=== PATIENT | female | born 1985 | race Two or more races ===

== ENCOUNTER 2023-12-27 22:45 | Emergency (ER) | payer MEDICAID, OTHER ==
[~2023-12-27] VITALS: Ht 165.1 cm; Wt 154.0 kg
[2023-12-27 23:36] LABS: Urine Bacteria FEW /hpf (None Seen); Urine Blood 2+ /uL (Negative); Urine Clarity Clear (Clear); Urine Color Yellow (Yellow); Urine Mucus FEW (None Seen); Urine Protein, UAD 2+ (Negative); Urine Urobilinogen Normal (Negative); Urine WBC 20 /hpf (0 - 5); Urine pH 5.5 (5.0-8.0)
[2023-12-27 23:40] LABS: Basophils # (auto) 0.2 10 ^3/uL (0-0.2); Basophils % (auto) 1.5 % (0.0-2.0); Eosinophils # (auto) 0.3 10 ^3/uL (0-0.8); Eosinophils % (auto) 2.2 % (0.0-7.0); Hematocrit 39.3 % (36.0-46.0); Hemoglobin 12.3 g/dL (12.2-16.2); Lymphocytes # (auto) 6.2 10 ^3/uL (0.4-5.4); Lymphocytes % (auto) 40.6 % (10.0-50.0); Mean Corpuscular Hemoglobin 25.6 pg (28.0-32.0); Mean Corpuscular Hgb Conc. 31.3 g/dL (32.0-36.0); Mean Corpuscular Volume 81.7 fL (80.0-100.0); Monocytes # (auto) 0.7 10 ^3/uL (0-1.3); Monocytes % (auto) 4.8 % (0.0-12.0); Neutrophils # (auto) 7.8 10 ^3/uL (1.6-8.6); Neutrophils % (auto) 50.9 % (37.0-80.0); Nucleated Red Blood Cells % 0.1 %; Red Blood Cells 4.81 10^6/uL (4.0-5.20); White Blood Cell 15.3 10^3/uL (4.4-10.8)
[2023-12-27 23:54] LABS: Alanine Aminotransferase 34 U/L (7-40); Alkaline Phosphatase 120 U/L (46-116); Anion Gap 7 (5-15); Aspartate Aminotransferase 27 U/L (13-40); BUN/Creatinine Ratio 12.8 (10.0-20.0); Blood Urea Nitrogen 12 mg/dL (9-23); Calcium 10.6 mg/dL (8.7-10.4); Carbon Dioxide 29 mmol/L (20-30); Chloride 103 mmol/L (98-107); Glucose 181 mg/dL (74-106); Potassium 4.1 mmol/L (3.5-5.1); Sodium 139 mmol/L (136-145)
[2023-12-27 23:55] LABS: Albumin 4.7 g/dL (3.2-4.8); Bilirubin, Total 0.4 mg/dL (0.2-1.0); Total Protein 7.6 g/dL (5.7-8.2)
[2023-12-28] MEDS ORDERED: PHEN-1045 PO (01:23)
[2023-12-28] MEDS ORDERED: ALBU108A5 IN (01:23)
[2023-12-28] MEDS ORDERED: CEPH500C PO (01:23)
[2023-12-28] MEDS ORDERED: BENZ200C64 PO (01:23)
[2023-12-28 01:54] VITALS: BP 139/87; TEMP 98.1
[2023-12-28 01:55] VITALS: PULSE 77; RESP 16; O2SAT 98
[2023-12-28] MEDS: ONDANSETRON ODT 4 MG TAB PO ONE (01:59)
[2023-12-28] MEDS: HYDROcodone-ACET 5/325MG TAB PO ONE (01:59)
[2023-12-28] MEDS: cefTRIAXone SOD 1,000 MG VL IM ONE (02:00)
== END 2023-12-28 02:31 | disposition home or self-care (01) ==
LOC: ER 22:45
DX: R07.89 Other chest pain (principal); N39.0 Urinary tract infection, site not specified; E11.65 Type 2 diabetes mellitus with hyperglycemia; J20.9 Acute bronchitis, unspecified; I10 Essential (primary) hypertension; E78.5 Hyperlipidemia, unspecified; J45.909 Unspecified asthma, uncomplicated; Z32.02 Encounter for pregnancy test, result negative
CPT/HCPCS: 36415; 71045; 80053; 81001; 81025; 83880; 84443; 84484; 85025; 93005; 96372; 99285; J0696; Q0162

== ENCOUNTER 2024-03-30 16:07 | Inpatient (IN) | payer MEDICAID ==
[~2024-03-30] VITALS: Ht 165.1 cm; Wt 166.5 kg
[~2024-03-30 16:07] MED LIST: ALBU108A5 IN; BENZ200C64 PO; CEPH500C PO; PHEN-1045 PO
[2024-03-30 17:12] LABS: Basophils # (auto) 0.2 10 ^3/uL (0-0.2); Eosinophils # (auto) 0.4 10 ^3/uL (0-0.8); Hemoglobin 13.2 g/dL (12.2-16.2); Monocytes # (auto) 0.7 10 ^3/uL (0-1.3)
[2024-03-30 17:14] LABS: Basophils % (auto) 1.4 % (0.0-2.0); Eosinophils % (auto) 2.3 % (0.0-7.0); Hematocrit 41.1 % (36.0-46.0); Lymphocytes # (auto) 5.9 10 ^3/uL (0.4-5.4); Lymphocytes % (auto) 34.3 % (10.0-50.0); Mean Corpuscular Hemoglobin 25.6 pg (28.0-32.0); Mean Corpuscular Hgb Conc. 32.1 g/dL (32.0-36.0); Mean Corpuscular Volume 79.8 fL (80.0-100.0); Monocytes % (auto) 4.2 % (0.0-12.0); Neutrophils % (auto) 57.8 % (37.0-80.0); Red Blood Cells 5.14 10^6/uL (4.0-5.20); Red Cell Distribution Width 16.4 % (11.8-14.3); White Blood Cell 17.3 10^3/uL (4.4-10.8)
[2024-03-30 17:14] LABS: Urine Bacteria FEW /hpf (None Seen); Urine Blood Negative /uL (Negative); Urine Budding Yeast OCCASIONAL /hpf (None Seen); Urine Clarity Turbid (Clear); Urine Color Yellow (Yellow); Urine Hyaline Cast FEW /lpf (0 - 2); Urine Mucus FEW (None Seen); Urine Protein, UAD 1+ (Negative); Urine Specific Gravity 1.033 (1.001-1.035); Urine Urobilinogen 2 mg/dL (Negative); Urine WBC 52 /hpf (0 - 5); Urine pH 5.5 (5.0-9.0)
[2024-03-30 17:34] LABS: Alanine Aminotransferase 15 U/L (7-40); Albumin 4.5 g/dL (3.2-4.8); Alkaline Phosphatase 110 U/L (46-116); Anion Gap 13 (5-15); Aspartate Aminotransferase 22 U/L (13-40); BUN/Creatinine Ratio 9.2 (10.0-20.0); Blood Urea Nitrogen 9 mg/dL (9-23); Calcium 10.5 mg/dL (8.7-10.4); Carbon Dioxide 21 mmol/L (20-30); Chloride 102 mmol/L (98-107); Glucose 207 mg/dL (74-106); Lipase 42 U/L (12-53); Sodium 136 mmol/L (136-145)
[2024-03-30 17:35] LABS: Bilirubin, Total 0.3 mg/dL (0.2-1.0)
[2024-03-30 17:39] LABS: Lactic Acid w/Reflex 4.6 mmol/L (0.4-2.0)
[2024-03-30] MEDS: PIPERACILLIN-TAZOB 3.375GM 100 ML IV ONE (18:54)
[2024-03-30] MEDS: SODIUM CHLORIDE 0.9% 1,000 ML IV ONE ×2 (18:54→22:55)
[2024-03-30] MEDS: FLUCONAZOLE 100 MG TAB PO ONE (22:33)
[2024-03-30] MEDS: PANTOPRAZOLE 40 MG/10 ML VIAL INJ IV ONE (22:34)
[2024-03-30 23:55] VITALS: PULSE 79; RESP 11; O2SAT 94
[2024-03-31] VITALS (7 sets, daily range): BP systolic 114–142; BP diastolic 57–80; PULSE 60–75; RESP 16–20; TEMP 97.6–98.7; O2SAT 94–96
[2024-03-31] MEDS: SODIUM CHLORIDE 0.9% 1,000 ML IV SCH
[2024-03-31] MEDS ORDERED: DEXTROSE (50%) 50ML SYRG IV PRN
[2024-03-31] MEDS ORDERED: ONDANSETRON HCL 4 MG/2 ML VIAL IV PRN
[2024-03-31] MEDS ORDERED: MORPHINE SULFATE INJ 2 MG/ml SYRG IV PRN
[2024-03-31] MEDS: ACCU-CHEK COMFORT CURVE STRIP VI SCH (02:21)
[2024-03-31] MEDS: InsuLIN REG 1unit/0.01ml Soln (100units/ml) SC SCH (02:23)
[2024-03-31] MEDS: HYDROcodone-ACET 5/325MG TAB PO PRN (06:36)
[2024-03-31 07:53] LABS: Alanine Aminotransferase 12 U/L (7-40); Albumin 4.1 g/dL (3.2-4.8); Alkaline Phosphatase 102 U/L (46-116); Anion Gap 10 (5-15); Aspartate Aminotransferase 18 U/L (13-40); BUN/Creatinine Ratio 7.1 (10.0-20.0); Bilirubin, Total 0.5 mg/dL (0.2-1.0); Blood Urea Nitrogen 7 mg/dL (9-23); Calcium 9.7 mg/dL (8.5-10.1); Carbon Dioxide 25 mmol/L (20-30); Chloride 101 mmol/L (98-107); Glucose 157 mg/dL (74-106); Sodium 136 mmol/L (136-145); Total Protein 7.1 g/dL (5.7-8.2)
[2024-03-31 07:55] LABS: Hemoglobin 11.8 g/dL (12.2-16.2)
[2024-03-31 08:00] LABS: Hematocrit 37.5 % (36.0-46.0); Mean Corpuscular Hemoglobin 25.4 pg (28.0-32.0); Mean Corpuscular Hgb Conc. 31.4 g/dL (32.0-36.0); Red Blood Cells 4.63 10^6/uL (4.0-5.20); Red Cell Distribution Width 16.9 % (11.8-14.3); White Blood Cell 13.1 10^3/uL (4.4-10.8)
[2024-03-31 08:07] LABS: Band Neutrophils % (manual) 0; Basophils % (manual) 0 (0.0-2.0); Blast Cells 0; Metamyelocytes % 0; Promyelocytes % 0; Reactive Lymphocytes 0
[2024-03-31] MEDS: levoFLOXacin 500MG 100 ML IV SCH (09:34)
[2024-03-31 12:31] LABS: Eosinophils % (manual) 1 (0-7); Lymphocytes % (manual) 35 (10.0-50.0); Monocytes % (manual) 7 (0-12); Myelocytes % 1
[2024-03-31 12:32] LABS: Platelet Estimate Adequate
[2024-04-01] VITALS (8 sets, daily range): BP systolic 122–157; BP diastolic 60–104; PULSE 63–76; RESP 16–20; TEMP 97.6–98.7; O2SAT 93–98
[2024-04-01] MEDS ORDERED: LEVO300T2 PO (07:13)
[2024-04-01 07:20] LABS: Alanine Aminotransferase 12 U/L (7-40); Albumin 4.3 g/dL (3.2-4.8); Alkaline Phosphatase 95 U/L (46-116); Anion Gap 8 (5-15); Aspartate Aminotransferase 10 U/L (13-40); BUN/Creatinine Ratio 7.4 (10.0-20.0); Blood Urea Nitrogen 7 mg/dL (9-23); Calcium 9.5 mg/dL (8.5-10.1); Carbon Dioxide 27 mmol/L (20-30); Chloride 101 mmol/L (98-107); Glucose 177 mg/dL (74-106); Potassium 3.9 mmol/L (3.5-5.1); Sodium 136 mmol/L (136-145)
[2024-04-01 07:21] LABS: Bilirubin, Total 0.3 mg/dL (0.2-1.0); Total Protein 7.1 g/dL (5.7-8.2)
[2024-04-01 07:25] LABS: Basophils # (auto) 0.1 10 ^3/uL (0-0.2); Basophils % (auto) 0.9 % (0.0-2.0); Eosinophils # (auto) 0.4 10 ^3/uL (0-0.8); Eosinophils % (auto) 3.1 % (0.0-7.0); Hemoglobin 11.8 g/dL (12.2-16.2); Lymphocytes # (auto) 4.1 10 ^3/uL (0.4-5.4); Lymphocytes % (auto) 35.9 % (10.0-50.0); Mean Corpuscular Hemoglobin 26.3 pg (28.0-32.0); Mean Corpuscular Hgb Conc. 32.7 g/dL (32.0-36.0); Mean Corpuscular Volume 80.6 fL (80.0-100.0); Monocytes # (auto) 0.6 10 ^3/uL (0-1.3); Monocytes % (auto) 4.8 % (0.0-12.0); Neutrophils # (auto) 6.4 10 ^3/uL (1.6-8.6); Neutrophils % (auto) 55.3 % (37.0-80.0); Nucleated Red Blood Cells % 0.1 %; Red Blood Cells 4.46 10^6/uL (4.0-5.20); White Blood Cell 11.6 10^3/uL (4.4-10.8)
[2024-04-01] MEDS: IBUPROFEN 600 MG TAB PO PRN (21:27)
[2024-04-02] VITALS (8 sets, daily range): BP systolic 117–157; BP diastolic 54–95; PULSE 65–87; RESP 17–19; TEMP 97.6–98.4; O2SAT 92–98
[2024-04-02] MEDS ORDERED: LISI10TA34 PO (12:03)
[2024-04-02] MEDS: SODIUM CHLORIDE 0.9% 1,000 ML IV SCH (15:00)
[2024-04-02] MEDS ORDERED: ACETAMINOPHEN 500 MG TAB PO PRN (15:00)
[2024-04-02] MEDS ORDERED: ATOR-47 PO (16:25)
[2024-04-02] MEDS ORDERED: FURO20TA3 PO (16:25)
[2024-04-02] MEDS ORDERED: CEPH500T PO (16:25)
[2024-04-02] MEDS ORDERED: FURO10SO PO (16:25)
[2024-04-02] MEDS ORDERED: BUSP5TAB51 PO (16:25)
[2024-04-02] MEDS: PANTOPRAZOLE 40 MG TAB PO ONE (17:23)
[2024-04-02] MEDS: cefTRIAXone 1GM/50ML D5W 50 ML IV ONE (17:59)
[2024-04-03] VITALS (7 sets, daily range): BP systolic 114–164; BP diastolic 70–90; PULSE 61–80; RESP 16–20; TEMP 97.7–98.7; O2SAT 90–98
[2024-04-03] MEDS ORDERED: hydrALAZINE HCL 20 MG/ML VL IV PRN (00:45)
[2024-04-03] MEDS: IBUPROFEN 600 MG TAB PO PRN (01:25)
[2024-04-03 05:59] LABS: Basophils # (auto) 0.1 10 ^3/uL (0-0.2); Basophils % (auto) 0.8 % (0.0-2.0); Eosinophils # (auto) 0.4 10 ^3/uL (0-0.8); Hemoglobin 12.7 g/dL (12.2-16.2); Monocytes # (auto) 0.5 10 ^3/uL (0-1.3); Nucleated Red Blood Cells % 0.1 %
[2024-04-03 06:03] LABS: Eosinophils % (auto) 3.5 % (0.0-7.0); Hematocrit 39.2 % (36.0-46.0); Lymphocytes # (auto) 4.2 10 ^3/uL (0.4-5.4); Lymphocytes % (auto) 34.2 % (10.0-50.0); Mean Corpuscular Hemoglobin 26.4 pg (28.0-32.0); Mean Corpuscular Hgb Conc. 32.4 g/dL (32.0-36.0); Mean Corpuscular Volume 81.6 fL (80.0-100.0); Monocytes % (auto) 4.3 % (0.0-12.0); Neutrophils % (auto) 57.2 % (37.0-80.0); Red Cell Distribution Width 17.5 % (11.8-14.3); White Blood Cell 12.3 10^3/uL (4.4-10.8)
[2024-04-03 06:17] LABS: Albumin 4.3 g/dL (3.2-4.8); Alkaline Phosphatase 91 U/L (46-116); Anion Gap 11 (5-15); Aspartate Aminotransferase < 8 U/L (13-40); BUN/Creatinine Ratio 8.7 (10.0-20.0); Blood Urea Nitrogen 8 mg/dL (9-23); Calcium 9.8 mg/dL (8.7-10.4); Carbon Dioxide 25 mmol/L (20-30); Chloride 103 mmol/L (98-107); Glucose 207 mg/dL (74-106); Potassium 4.1 mmol/L (3.5-5.1); Sodium 139 mmol/L (136-145)
[2024-04-03 06:18] LABS: Alanine Aminotransferase < 9 U/L (7-40); Bilirubin, Total 0.3 mg/dL (0.2-1.0); Total Protein 7.5 g/dL (5.7-8.2)
[2024-04-03] MEDS: PANTOPRAZOLE 40 MG TAB PO SCH (06:47)
[2024-04-03] MEDS: LORazepam 0.5 MG TAB PO PRN (08:16)
[2024-04-03] MEDS: cefTRIAXone 1GM/50ML D5W 50 ML IV SCH (08:16)
[2024-04-03] MEDS: HYDROcodone-ACET 5/325MG TAB PO PRN (08:17)
[2024-04-03] MEDS: ENOXAPARIN SOD 40 MG/0.4 ML SYRINGE SC SCH (08:20)
[2024-04-03] MEDS ORDERED: PERCOT PO (11:12)
[2024-04-03 17:01] LABS: INR 0.97 (0.9-1.15); Partial Thromboplastin Time 25.7 SEC (24.5-34.5); Prothrombin Time 10.3 sec (9.3-11.8)
[2024-04-04] MEDS: InsuLIN REG 1unit/0.01ml Soln (100units/ml) SC SCH (00:27)
[2024-04-04] MEDS: SUCCINYLCHOLINE CHLORIDE 20 MG/ML 10ML VIAL IV ONE (08:04)
[2024-04-04] MEDS ORDERED: fentaNYL CITRATE 100 MCG/2 ML VL ONE (08:06)
[2024-04-04] MEDS: BUPIVACAINE HCL 50 ML ONE (08:07)
[2024-04-04] MEDS: ceFAZolin 2 GM/D5W50ml 50 ML IV ONE (08:17)
[2024-04-04 08:41] VITALS: BP 137/102; PULSE 65; RESP 18; TEMP 97.8; O2SAT 100
[2024-04-04] MEDS ORDERED: ROCURONIUM 10MG/ML 10ML VIAL IV ONE (08:43)
[2024-04-04] MEDS ORDERED: PROPOFOL 10 MG/ML 20 ML IV ONE (08:43)
[2024-04-04] MEDS ORDERED: DexAMETHasone SOD PHOS 10MG/1ML VIAL INJ ONE (08:44)
[2024-04-04] MEDS ORDERED: ONDANSETRON HCL 4 MG/2 ML VIAL ONE (08:44)
[2024-04-04] MEDS ORDERED: ePHEDrine SULFATE 50 MG/ML AMP ONE (08:45)
[2024-04-04] MEDS ORDERED: MEPERIDINE HCL (50 MG/ML) 1 ML VIAL ONE (09:05)
[2024-04-04] MEDS: LIDOCAINE W/ EPINEPHRINE 1% 20ML VIAL ONE (09:11)
[2024-04-04] MEDS ORDERED: SUGAMMADEX 200mg/2ml Vial (100MG/ML) IV ONE (09:28)
[2024-04-04 09:38] VITALS: O2SAT 96
[2024-04-04] MEDS ORDERED: HYDROmorphone HCL 2 MG/ML VL/or syr IV PRN (10:00)
[2024-04-04] MEDS ORDERED: MEPERIDINE HCL (25 MG/ML) 1ML VIAL IV PRN (10:00)
[2024-04-04 12:41] VITALS: BP 127/79; PULSE 60; RESP 18; TEMP 97.8; O2SAT 91
[2024-04-04] MEDS: metroNIDAZOLE 500MG/100ML 100 ML IV SCH (14:00)
[2024-04-04] MEDS: ONDANSETRON HCL 4 MG/2 ML VIAL IV ONE (15:08)
[2024-04-04] MEDS: metroNIDAZOLE 500 MG TAB PO ONE (15:46)
[2024-04-04 17:00] VITALS: BP 124/72; PULSE 89; RESP 18; TEMP 98; O2SAT 91
[2024-04-04] MEDS: metroNIDAZOLE 500 MG TAB PO SCH (20:48)
[2024-04-04 21:00] VITALS: BP 122/74; PULSE 94; RESP 18; TEMP 98.5; O2SAT 93
[2024-04-05] VITALS (7 sets, daily range): BP systolic 123–136; BP diastolic 55–78; PULSE 60–73; RESP 18–21; TEMP 97.7–97.9; O2SAT 92–97
[2024-04-05 06:59] LABS: Basophils % (auto) 0.3 % (0.0-2.0); Eosinophils # (auto) 0 10 ^3/uL (0-0.8); Neutrophils # (auto) 12.1 10 ^3/uL (1.6-8.6)
[2024-04-05 07:04] LABS: Basophils # (auto) 0.1 10 ^3/uL (0-0.2); Hematocrit 37.3 % (36.0-46.0); Lymphocytes # (auto) 3.9 10 ^3/uL (0.4-5.4); Lymphocytes % (auto) 23.2 % (10.0-50.0); Mean Corpuscular Hemoglobin 25.9 pg (28.0-32.0); Mean Corpuscular Hgb Conc. 32.2 g/dL (32.0-36.0); Mean Corpuscular Volume 80.5 fL (80.0-100.0); Monocytes # (auto) 0.6 10 ^3/uL (0-1.3); Monocytes % (auto) 3.6 % (0.0-12.0); Neutrophils % (auto) 72.9 % (37.0-80.0); Nucleated Red Blood Cells % 0.1 %; Red Blood Cells 4.63 10^6/uL (4.0-5.20); Red Cell Distribution Width 17.1 % (11.8-14.3); White Blood Cell 16.6 10^3/uL (4.4-10.8)
[2024-04-05] MEDS ORDERED: AMOX500T86 PO (12:10)
== END 2024-04-05 17:14 | disposition home or self-care (01) | DRG 263 ==
LOC: ER 16:11 → OVERFLOW 23:56 → WEST WING 03-31 01:50
PROVIDERS: ADMIT Internal Medicine; ATTEND Nurse Practitioner Acute Care
PROC: 0FT44ZZ Resection of Gallbladder, Percutaneous Endoscopic Approach (ICD-10-PCS; principal; 2024-04-04 08:33)
DX: K80.70 Calculus of gallbladder and bile duct without cholecystitis without obstruction (principal); N17.0 Acute kidney failure with tubular necrosis; Z68.44 Body mass index [BMI] 60.0-69.9, adult; E11.65 Type 2 diabetes mellitus with hyperglycemia; D64.9 Anemia, unspecified; E03.9 Hypothyroidism, unspecified; K76.0 Fatty (change of) liver, not elsewhere classified; E78.5 Hyperlipidemia, unspecified; E66.01 Morbid (severe) obesity due to excess calories; N39.0 Urinary tract infection, site not specified; I10 Essential (primary) hypertension; J45.909 Unspecified asthma, uncomplicated; K21.9 Gastro-esophageal reflux disease without esophagitis; G89.4 Chronic pain syndrome; F11.90 Opioid use, unspecified, uncomplicated; Z98.891 History of uterine scar from previous surgery; Z79.899 Other long term (current) drug therapy; Z91.041 Radiographic dye allergy status; Z82.5 Family history of asthma and other chronic lower respiratory diseases
CPT/HCPCS: 36415; 74176; 76705; 76937; 78226; 80053; 81001; 81025; 82247; 82962; 83036; 83605; 83690; 84702; 85007; 85025; 85027; 85610; 85730; 87040; 87086; 96365; C9113; G0378; J0330; J1100; J1815; J1956; J2405; J2543; J2704; J3490

== ENCOUNTER 2025-01-21 21:42 | Emergency (ER) | payer MEDICAID ==
[~2025-01-21] VITALS: Ht 165.1 cm; Wt 159.0 kg
[~2025-01-21 21:42] MED LIST changes: +AMOX500T86 PO; +ATOR-47 PO; +BUSP5TAB51 PO; +CEPH500T PO; +FURO20TA3 PO; +LEVO300T2 PO; +LISI10TA34 PO; +PERCOT PO
[2025-01-21] MEDS: KETOROLAC TROMETH 60MG/2ML VIAL IM ONE (22:00)
--- NOTE | 2025-01-21 22:11 | ED.PDOC ---
History of Present Illness HPI Comments 39 year old female came to ER due to back pains. Patient is morbidly obese. Has been complaining of lower back pains for the past 2 days associated with nausea and vomiting. She denies any urinary symptoms. Chief Complaint: Back Pains Time Seen by MD: 22:11 Primary Care Provider: GAGAN Reviewed Notes: Nurses Notes Allergies: Coded Allergies: Acetaminophen (Verified Allergy, Severe, 01/21/25) Uncoded Allergies: CONTRAST (Allergy, Unknown, 04/04/24) BURNING/ITCHY Home Meds Active Scripts Amoxicillin & Pot Clavulanate (Augmentin) 500 Mg Tab, 1 TAB PO BID for 5 Days, #10 TAB Prov:SYDNIE POLANCOPH CLOTH DYEING RANGE TENDER 04/05/24 Benzonatate (Benzonatate) 200 Mg Cap, 1 CAP PO TID, #30 CAP As needed for cough Prov:DAE PLASENCIAA Q CLOTH DYEING RANGE TENDER 12/28/23 Albuterol Sulfate (Albuterol Sulfate Hfa) 108 Mcg/Act Aer, 1 PUFF IN Q4HPRN PRN, #1 INH As needed for cough nasal congestion shortness of breath or wheeze Prov:DAE PLASENCIAA Q CLOTH DYEING RANGE TENDER 12/28/23 Phenazopyridine HCl (Phenazopyridine Hydrochol) 200 Mg Tab, 1 TAB PO TID for 3 Days, #9 TAB Prov:DAE PLASENCIAA Q CLOTH DYEING RANGE TENDER 12/28/23 Cephalexin Monohydrate (Cephalexin) 500 Mg Cap, 1 CAP PO QID for 10 Days, #40 CAP Prov:ERINNDAEA Q CLOTH DYEING RANGE TENDER 12/28/23 Reported Medications Oxycodone W/ Acetaminophen (Percocet 5/325MG) 1 Tab Tb, 1 TAB PO BID, #60 TAB 04/03/24 Furosemide (Furosemide) 20 Mg Tab, 1 TAB PO DAILY, #90 TAB 1 Refill 04/02/24 Cephalexin Monohydrate (Cephalexin) 500 Mg Tab, 1 TAB PO QID, #40 TAB 04/02/24 Atorvastatin Calcium (ATORVASTATIN CALCIUM) 80 Mg Tab, 80 MG PO DAILY, TAB 04/02/24 Buspirone Hcl (Buspirone Hcl) 5 Mg Tab, 5 MG PO Q12HR for 30 Days, MG 04/02/24 Lisinopril (Lisinopril) 10 Mg Tab, 10 MG PO DAILY for 30 Days, MG 04/02/24 Levothyroxine Sodium (Synthroid) 300 Mcg Tab, 325 MCG PO QAM, TAB 04/01/24 Mode of Arrival: Wheelchair Severity: Moderate Timing: Days Duration: Since onset Past Medical History PAST MEDICAL HISTORY: Asthma, DM, Gallstones, HTN, Thyroid Past Medical History (Other): morbid obesity Surgical History: PRINCIPAL IOS DEVELOPER History: No Pertinent PRINCIPAL IOS DEVELOPER History Family History Family History: Reviewed,noncontributory to illness Social History Smoker: Non-Smoker Alcohol: Denies ETOH Use Drugs: Denies Drug Use Lives In: Home Constitutional: denies: chills, diaphoresis, fatigue, fever, malaise, sweats, weakness, others EENTM: denies: blurred vision, double vision, ear bleeding, ear discharge, ear drainage, ear pain, ear ringing, eye pain, eye redness, hearing loss, mouth pain, mouth swelling, nasal discharge, nose bleeding, nose congestion, nose pain , photophobia, tearing, throat pain, throat swelling, voice changes, others Respiratory: denies: cough, hemoptysis, orthopnea, SOB at rest, shortness of breath, SOB with excertion, stridor, wheezing, others Cardiovascular: denies: chest pain, dizzy spells, diaphoresis, Dyspnea on exertion, edema, irregular heart beat, left arm pain, lightheadedness, palpitations, PND, syncope, others Gastrointestinal: denies: abdomen distended, abdominal pain, blood streaked bowels, constipated, diarrhea, dysphagia, difficulty swallowing, hematemesis, melena, nausea, poor appetite, poor fluid intake, rectal bleeding, rectal pain, vomiting, others Genitourinary: denies: abnormal vagina bleeding, burning, dyspareunia, dysuria, flank pain, frequency, hematuria, incontinence, pain, , vagina discharge, urgency, others Neurological: denies: dizziness, fainting, headache, left sided numbness, left sided weakness, numbness, paresthesia, pre-existing deficit, right sided numbness, right sided weakness, seizure, speech problems, tingling, tremors, weakness, others Musculoskeletal: reports: back pain; denies: gout, joint pain, joint swelling, muscle pain, muscle stiffness, neck pain, others Integumetry: denies: bruises, change in color, change in hair/nails, dryness, laceration, lesions, lumps, rash, wounds, others Allergic/Immunocompromised: denies: Difficulty Healing, Frequent Infections, Hives, Itching, others Hematologic/Lymphatic: denies: anemia, blood clots, easy bleeding, easy bruising, swollen glands, others Endocrine: denies: excessive hunger, excessive sweating, excessive thirst, excessive urination, flushing, intolerance to cold, intolerance to heat, unexplained weight gain, unexplained weight loss, others Psychiatric: denies: anxiety, bipolar disorder, depression, hopeless, panic disorder, schizophrenia, sleepless, suicidal, others Physical Exam General Appearance: No Apparent Distress, Obese HEENT: Normal ENT Inspection, Pharynx Normal, TMs Normal Neck: Full Range of Motion, Non-Tender, Normal, Normal Inspection Respiratory: Chest Non-Tender, Lungs Clear, No Accessory Muscle Use, No Respiratory Distress, Normal Breath Sounds Cardiovascular: No Edema, No JVD, No Murmur, No Gallop, Normal Peripheral Pulses, Regular Rate/Rhythm Breast Exam: Deferred Gastrointestinal: No Organomegaly, Non Tender, No Pulsatile Mass, Normal Bowel Sounds, Soft Genitalia: Deferred Pelvic: Deferred Rectal: Deferred Extremities: No calf tenderness, Normal capillary refill, Normal inspection, Normal range of motion, No pedal edema, Tender (paralumbar tenderness) Musculoskeletal : Apperance: Normal Neurologic: Alert, circulation analyst II-XII nml as Tested, No Motor Deficits, Normal Affect, Normal Mood, No Sensory Deficits Cerebellar Function: Normal Reflexes: Normal Skin: Dry, Normal Color, Warm Lymphatic: No Adenopathy Was a procedure done? Was a procedure done?: No Differential Dx Considerations may include: musculoskeletal pain, lumbosacral strain, UTI, morbid obesity, pyelonephritis, renal colic, related pain X-Ray, Labs, Meds, VS Vital Signs Date Time Temp Pulse Resp B/P (MAP) Pulse Ox O2 Delivery O2 Flow Rate FiO2 01/21/25 22:09 99.3 95 20 150/90 (110) 95 99.3 Lab Test 01/21/25 22:10 01/21/25 22:00 Range/Units White Blood Count 11.3 H 4.4-10.8 10^3/uL Red Blood Count 5.09 4.0-5.20 10^6/uL Hemoglobin 14.7 12.2-16.2 g/dL Hematocrit 45.2 36.0-46.0 % Mean Corpuscular Volume 88.7 80.0-100.0 fL Mean Corpuscular Hemoglobin 28.8 28.0-32.0 pg Mean Corpuscular Hemoglobin Concent 32.5 32.0-36.0 g/dL Red Cell Distribution Width 14.9 H 11.8-14.3 % Platelet Count 294 140-450 10^3/uL Mean Platelet Volume 8.9 6.9-10.8 fL Neutrophils (%) (Auto) 60.1 37.0-80.0 % Lymphocytes (%) (Auto) 31.7 10.0-50.0 % Monocytes (%) (Auto) 5.3 0.0-12.0 % Eosinophils (%) (Auto) 2.3 0.0-7.0 % Basophils (%) (Auto) 0.6 0.0-2.0 % Neutrophils # (Auto) 6.8 1.6-8.6 10 ^3/uL Lymphocytes # (Auto) 3.6 0.4-5.4 10 ^3/uL Monocytes # (Auto) 0.6 0-1.3 10 ^3/uL Eosinophils # (Auto) 0.3 0-0.8 10 ^3/uL Basophils # (Auto) 0.1 0-0.2 10 ^3/uL Nucleated Red Blood Cells 0.2 % Sodium Level 136 136-145 mmol/L Potassium Level 3.9 3.5-5.1 mmol/L Chloride Level 102 98-107 mmol/L Carbon Dioxide Level 26 20-31 mmol/L Anion Gap 8 5-15 Blood Urea Nitrogen 6 L 9-23 mg/dL Creatinine 0.92 0.550-1.02 mg/dL Glomerular Filtration Rate Calc 81 >90 mL/min BUN/Creatinine Ratio 6.5 L 10.0-20.0 Serum Glucose 354 H 74-106 mg/dL Calcium Level 9.6 8.7-10.4 mg/dL Urine Color Light-yellow Yellow Urine Clarity Clear Clear Urine pH 5.5 5.0-9.0 Urine Specific [place] 1.029 1.001-1.035 Urine Protein 1+ H Negative Urine Ketones Trace Negative Urine Blood Negative Negative /uL Urine Nitrite Negative Negative Urine Bilirubin Negative Negative Urine Urobilinogen Normal Negative mg/dL Urine Leukocyte Esterase Trace Negative /uL Urine RBC 2 0 - 4 /hpf Urine Microscopic WBC 4 0-5 /HPF Urine Squamous Epithelial Cells Few <5 /hpf Urine Bacteria None seen None Seen /hpf Urine Mucus Few None Seen Urine Glucose 4+ H Normal mg/dL Urine Test Negative Negative Time of 1ST Reevaluation: 22:04 Reevaluation 1ST: Unchanged Patient Education/Counseling: Diagnosis, Treatment Family Education/Counseling: Diagnosis, Treatment Additional Information -Reviewed patient's previous visit(s): March 31-2023 admitted for Cholelithiasis with Biliary colic, UTI, chronic pain syndrome with chronic opiate use - The following tests were ordered, and results were reviewed by me: - Additional information was gathered from interviewing the following independent Historian: - I reviewed and agreed with the following test results read by other provider: - I discussed treatments and results with medical personnel and: patient Comprehensive systems review obtained and negative except for what is stated in the HPI. Departure 1 Departure Time of Disposition: 22:55 Impression: Primary Impression: Lumbalgia Qualified Codes: M54.50 - Low back pain, unspecified; G89.29 - Other chronic pain Disposition: HOME / SELF CARE / HOMELESS Condition: Good e-Prescriptions Cyclobenzaprine Hcl (Cyclobenzaprine Hcl) 10 Mg Tab 10 MG PO Q8HPRN PRN for 3 Days, #9 TAB Prov: ALESSIA LILLY MD 01/21/25 Ibuprofen Micronized (MOTRIN TABLET) 600 Mg Tb 600 MG PO TID PRN, #40 TAB *Black box warning-NSAIDS can increase risk of IN & hypertension, GI irritation, ulceration, bleed, perferation. Do not use post cardiac surgery. Use short duration/lowest effective dose. Prov: ALESSIA LILLY MD 01/21/25 Discharged With: Relative Critical Care Note Critical Care Time?: No Stability Stability form required: No Heart Score Heart Score: Heart Score Response (Comments) Value History N/A 0 EKG N/A 0 Age N/A 0 Risk Factors N/A 0 Troponin N/A 0 Total 0 I personally scribed for ALESSIA LILLY MD ([email or web address]) on 01/21/25 at 22:11. Electronically submitted by Tito Castillo ([email or web address]). ALESSIA LILLY MD Jan 21, 2025 22:11
[2025-01-21 22:21] LABS: Urine Bacteria None Seen /hpf (None Seen)
[2025-01-21 22:33] LABS: Basophils # (auto) 0.1 10 ^3/uL (0-0.2); Basophils % (auto) 0.6 % (0.0-2.0); Eosinophils # (auto) 0.3 10 ^3/uL (0-0.8); Eosinophils % (auto) 2.3 % (0.0-7.0); Hematocrit 45.2 % (36.0-46.0); Hemoglobin 14.7 g/dL (12.2-16.2); Lymphocytes # (auto) 3.6 10 ^3/uL (0.4-5.4); Lymphocytes % (auto) 31.7 % (10.0-50.0); Mean Corpuscular Hemoglobin 28.8 pg (28.0-32.0); Mean Corpuscular Hgb Conc. 32.5 g/dL (32.0-36.0); Mean Corpuscular Volume 88.7 fL (80.0-100.0); Monocytes # (auto) 0.6 10 ^3/uL (0-1.3); Monocytes % (auto) 5.3 % (0.0-12.0); Neutrophils # (auto) 6.8 10 ^3/uL (1.6-8.6); Neutrophils % (auto) 60.1 % (37.0-80.0); Nucleated Red Blood Cells % 0.2 %; Platelet Count (auto) 294 10^3/uL (140-450); Red Blood Cells 5.09 10^6/uL (4.0-5.20); Red Cell Distribution Width 14.9 % (11.8-14.3); White Blood Cell 11.3 10^3/uL (4.4-10.8)
[2025-01-21 22:35] LABS: Chloride 102 mmol/L (98-107); Potassium 3.9 mmol/L (3.5-5.1); Sodium 136 mmol/L (136-145)
[2025-01-21 22:36] LABS: Anion Gap 8 (5-15); Carbon Dioxide 26 mmol/L (20-31)
[2025-01-21 22:37] LABS: Calcium 9.6 mg/dL (8.7-10.4)
[2025-01-21 22:37] LABS: Urine Blood Negative /uL (Negative); Urine Clarity Clear (Clear); Urine Color Light-Yellow (Yellow); Urine Mucus FEW (None Seen); Urine Protein, UAD 1+ (Negative); Urine Specific Gravity 1.029 (1.001-1.035); Urine Squamous Epithelial Cell FEW /hpf (<5); Urine Urobilinogen Normal (Negative); Urine WBC 4 /HPF (0-5); Urine pH 5.5 (5.0-9.0)
[2025-01-21 22:41] LABS: BUN/Creatinine Ratio 6.5 (10.0-20.0)
[2025-01-21 22:45] LABS: Blood Urea Nitrogen 6 mg/dL (9-23); Glucose 354 mg/dL (74-106)
[2025-01-21] MEDS ORDERED: IBU600T PO (22:56)
[2025-01-21] MEDS ORDERED: CYCL-839 PO (22:56)
[2025-01-21 23:23] VITALS: BP 150/90; PULSE 84; RESP 16; TEMP 99.4; O2SAT 95
== END 2025-01-21 23:26 | disposition home or self-care (01) ==
LOC: ER 21:42
DX: M54.50 Low back pain, unspecified (principal); J45.909 Unspecified asthma, uncomplicated; E11.9 Type 2 diabetes mellitus without complications; I10 Essential (primary) hypertension; E66.01 Morbid (severe) obesity due to excess calories; Z79.899 Other long term (current) drug therapy; Z88.1 Allergy status to other antibiotic agents; Z68.43 Body mass index [BMI] 50.0-59.9, adult; Z32.02 Encounter for pregnancy test, result negative
CPT/HCPCS: 36415; 80048; 81001; 81025; 85025; J1885

== ENCOUNTER 2025-01-30 11:53 | Emergency (ER) | payer MEDICAID ==
[~2025-01-30] VITALS: Ht 165.1 cm; Wt 155.0 kg
[~2025-01-30 11:53] MED LIST changes: +CYCL-839 PO; +IBU600T PO
[2025-01-30 13:19] VITALS: BP 123/63; PULSE 82; RESP 16; TEMP 97.6; O2SAT 94
--- NOTE | 2025-01-30 14:17 | DVH ---
EXAM: XY R KNEE 3V XRAY HISTORY: KNEE PAIN. R/O FRACTURE COMPARISON: None TECHNIQUE: 3 views of the right knee were performed. FINDINGS: No acute fracture is identified about the right knee. There are medial compartment marginal osteophy gustavo with [id number] joint space narrowing. No evidence of significant joint effusion. IMPRESSION: 1. No acute fracture of the right knee. 2. Degenerative changes of the right knee, greatest in the medial compartment.
--- NOTE | 2025-01-30 14:30 | ED.PDOC ---
Musculoskeletal HPI Comments 39 YEAR OLD PRESENTS WITH A CHIEF COMPLAINT NONRADIATING ATRAUMATIC RIGHT ANTERIOR KNEE PAIN X1 DAY. HEARD A POP WHILE SHE WAS IN BED & COMPLAINS OF PAIN SINCE ABLE TO BEAR WEIGHT ON THE LEG DENIES TRAUMA TO THE KNEE OR RECENT FALL DENIES SKIN COLOR CHANGES AROUND THE KNEE DENIES MASSES AROUND THE KNEE DENIES POPPING/LOCKING/GIVING OUT OF THE KNEE DENIES FEVER CHILLS NIGHT SWEATS NAUSEA VOMITING DENIES PREVIOUS SURGERIES TO THE KNEE NOR SIGNIFICANT INJURY Chief Complaint: Lower Extremity Time Seen by MD: 12:19 Primary Care Provider: GAGAN Reviewed Notes: Nurses Notes, Medications, Allergies Allergies: Coded Allergies: Acetaminophen (Verified Allergy, Severe, 01/21/25) Uncoded Allergies: CONTRAST (Allergy, Unknown, 04/04/24) BURNING/ITCHY Home Meds Active Scripts Meloxicam (Meloxicam) 7.5 Mg Tab, 1 TAB PO DAILY for 30 Days, #30 TAB 1 Refill Prov:PRINCESS CHRISTINE TECHNICAL ASSISTANT 01/30/25 Cyclobenzaprine Hcl (Cyclobenzaprine Hcl) 10 Mg Tab, 10 MG PO Q8HPRN PRN for 3 Days, #9 TAB Prov:ALESSIA LILLY MD 01/21/25 Ibuprofen Micronized (MOTRIN TABLET) 600 Mg Tb, 600 MG PO TID PRN, #40 TAB *Black box warning-NSAIDS can increase risk of ND & hypertension, GI irritation, ulceration, bleed, perferation. Do not use post cardiac surgery. Use short duration/lowest effective dose. Prov:ALESSIA LILLY MD 01/21/25 Amoxicillin & Pot Clavulanate (Augmentin) 500 Mg Tab, 1 TAB PO BID for 5 Days, #10 TAB Prov:MAGDALENO POLANCO TECHNICAL ASSISTANT 04/05/24 Benzonatate (Benzonatate) 200 Mg Cap, 1 CAP PO TID, #30 CAP As needed for cough Prov:BOSTON PLASENCIA Q TECHNICAL ASSISTANT 12/28/23 Albuterol Sulfate (Albuterol Sulfate Hfa) 108 Mcg/Act Aer, 1 PUFF IN Q4HPRN PRN, #1 INH As needed for cough nasal congestion shortness of breath or wheeze Prov:BOSTON PLASENCIA Q TECHNICAL ASSISTANT 12/28/23 Phenazopyridine HCl (Phenazopyridine Hydrochol) 200 Mg Tab, 1 TAB PO TID for 3 Days, #9 TAB Prov:BOSTON PLASENCIA Q TECHNICAL ASSISTANT 12/28/23 Cephalexin Monohydrate (Cephalexin) 500 Mg Cap, 1 CAP PO QID for 10 Days, #40 CAP Prov:BOSTON PLASENCIA Q TECHNICAL ASSISTANT 12/28/23 Reported Medications Oxycodone W/ Acetaminophen (Percocet 5/325MG) 1 Tab Tb, 1 TAB PO BID, #60 TAB 04/03/24 Furosemide (Furosemide) 20 Mg Tab, 1 TAB PO DAILY, #90 TAB 1 Refill 04/02/24 Cephalexin Monohydrate (Cephalexin) 500 Mg Tab, 1 TAB PO QID, #40 TAB 04/02/24 Atorvastatin Calcium (ATORVASTATIN CALCIUM) 80 Mg Tab, 80 MG PO DAILY, TAB 04/02/24 Buspirone Hcl (Buspirone Hcl) 5 Mg Tab, 5 MG PO Q12HR for 30 Days, MG 04/02/24 Lisinopril (Lisinopril) 10 Mg Tab, 10 MG PO DAILY for 30 Days, MG 04/02/24 Levothyroxine Sodium (Synthroid) 300 Mcg Tab, 325 MCG PO QAM, TAB 04/01/24 Information Source: Patient Mode of Arrival: Wheelchair Past Medical History PAST MEDICAL HISTORY: Asthma, DM, Gallstones, HTN, Thyroid Surgical History: PUMP RUNNER History: No Pertinent PUMP RUNNER History Family History Family History: Reviewed,noncontributory to illness Social History Smoker: Non-Smoker Alcohol: Denies ETOH Use Drugs: Denies Drug Use Lives In: Home All Other Systems: Reviewed and Negative (PER HPI) Physical Exam General Appearance: No Apparent Distress, Normal HEENT: Normal ENT Inspection, Pharynx Normal, TMs Normal Neck: Full Range of Motion, Non-Tender, Normal, Normal Inspection Respiratory: Chest Non-Tender, Lungs Clear, No Accessory Muscle Use, No Respiratory Distress, Normal Breath Sounds Cardiovascular: No Murmur, No Gallop, Regular Rate/Rhythm Breast Exam: Deferred Gastrointestinal: No Organomegaly, Non Tender, No Pulsatile Mass, Normal Bowel Sounds, Soft Genitalia: Deferred Pelvic: Deferred Rectal: Deferred Extremities: No calf tenderness, Normal capillary refill, Normal inspection, Normal range of motion, Non-tender, No pedal edema Musculoskeletal : Location: Right Extremity Location: Knee (NO GROSS ABNORMALITY. PAIN WITH FLEXION- EXTENSION. DP 2+ AND DISTAL NEURO SENSATION INTACT) Apperance: Normal Neurologic: Alert, No Motor Deficits, Normal Affect, Normal Mood, No Sensory Deficits Cerebellar Function: Normal Reflexes: Normal Skin: Dry, Normal Color, Warm Lymphatic: No Adenopathy Was a procedure done? Was a procedure done?: No Differential Diagnosis EXT Differential Diagnosis: Fracture, Sprain, Dislocation X-Ray, Labs, Meds, VS Vital Signs Date Time Temp Pulse Resp B/P (MAP) Pulse Ox O2 Delivery O2 Flow Rate FiO2 01/30/25 13:19 97.6 82 16 123/63 (83) 94 97.6 01/30/25 13:19 82 16 94 Room Air 01/30/25 12:04 97.6 82 16 123/63 (83) 94 97.6 PATIENT: DARIAN TORRES AACCT: [id number] UNIT: [id number] : 1985 LOC: ER ROOM / BED: / AGE / SEX: 39 / F ADM STATUS: REG ER SERVICE 1330 ORDERING PHYSICIAN: PRINCESS CHRISTINE NP PROCEDURE(s): RKN3 - R KNEE 3V XRAY REASON: KNEE PAIN. R/O FRACTURE ORDER NUMBER(s): [id number], ACCESSION NUMBER(s): [id number] EXAM: XY R KNEE 3V XRAY HISTORY: KNEE PAIN. R/O FRACTURE COMPARISON: None TECHNIQUE: 3 views of the right knee were performed. FINDINGS: No acute fracture is identified about the right knee. There are medial compartment marginal osteophytes with [id number] joint space narrowing. No evidence of significant joint effusion. IMPRESSION: 1. No acute fracture of the right knee. 2. Degenerative changes of the right knee, greatest in the medial compartment. ATED BY: ANGELICA ROSE MD DICTATED DATE/TIME: 01/30/251413 SIGNED BY: ANGELICA ROSE MD SIGNED DATE/TIME: 01/30/251413 CC: X-Ray, Labs, Meds, VS Comment PRESCRIBED NSAIDS FOR THE MANAGEMENT OF ACUTE KNEE PAIN. TAKE IBUPROFEN P.O. 600 MG EVERY 8 HOURS WITH FOOD NEEDED FOR PAIN RECOMMEND LIGHT WALKING UNDER THE SUN FOR 30 MINUTES A DAY AVOIDING RUNNING JOGGING HIGH-IMPACT ACTIVITIES STRETCH TOLERATED ICE 3X/DAY FOR 5 MINUTES WEAR KNEE BRACE FOR STABILITY NEEDED, ELEVATE LEG SWELLING AGGRAVATED On reevaluation, patient had symptomatic improvement. Patient is stable for discharge at this time. External notes reviewed. Test results and diagnostic imaging interpreted. All diagnostic findings, discharge care, education and instructions provided Follow-up with PCP in 2 to 3 days Patient verbalized understanding and agreed to treatment plan Vital signs stable, afebrile, no acute distress noted Patient ambulatory with strong steady gait Advised to return precautions for any new or worsening symptoms, return to ER immediately for re-evaluation Patient is aware that the purpose of this visit was for an acute medical emergency requiring emergent stabilization. Chronic conditions, including malignancies have not been ruled out. Patient is instructed to follow up with PCP as directed and discharge instructions for continued care and workup. If unable to arrange follow-up, patient is to return to the emergency department for reassessment. Patient (parent or legal guardian if applicable) was given verbal and written discharge instructions and acknowledges understanding. Time of 1ST Reevaluation: 14:29 Reevaluation 1ST: Improved Patient Education/Counseling: Diagnosis, Treatment Family Education/Counseling: Diagnosis, Treatment Departure 1 Departure Time of Disposition: 14:35 Impression: Primary Impression: Arthritis of knee Disposition: 01 HOME / SELF CARE / HOMELESS Condition: Stable e-Prescriptions Meloxicam (Meloxicam) 7.5 Mg Tab 1 TAB PO DAILY for 30 Days, #30 TAB 1 Refill Prov: PRINCESS CHRISTINE NP 01/30/25 Critical Care Note Critical Care Time?: No Stability Stability form required: No Heart Score Heart Score: Heart Score Response (Comments) Value History N/A 0 EKG N/A 0 Age N/A 0 Risk Factors N/A 0 Troponin N/A 0 Total 0 PRINCESS CHRISTINE TECHNICAL ASSISTANT Jan 30, 2025 14:29
[2025-01-30] MEDS ORDERED: MELO7.5T7 PO (14:35)
== END 2025-01-30 14:40 | disposition home or self-care (01) ==
LOC: ER 11:53
DX: M17.11 Unilateral primary osteoarthritis, right knee (principal); I10 Essential (primary) hypertension; J45.909 Unspecified asthma, uncomplicated; E11.9 Type 2 diabetes mellitus without complications; Z79.1 Long term (current) use of non-steroidal anti-inflammatories (NSAID); Z79.899 Other long term (current) drug therapy; Z98.890 Other specified postprocedural states; Z88.6 Allergy status to analgesic agent
CPT/HCPCS: 73562

== ENCOUNTER 2025-04-08 21:59 | Inpatient (IN) | payer MEDICAID ==
[~2025-04-08] VITALS: Ht 165.1 cm; Wt 159.1 kg
[~2025-04-08 21:59] MED LIST changes: +MELO7.5T7 PO
--- NOTE | 2025-04-08 22:53 | ED.PDOC ---
History of present illness HPI Comments 39 y/o morbidly obese F presents with spouse for c/o hyperglycemia, with associated lightheadedness, dizziness, and nausea. Patient has a history of asthma, DM, cholelithiasis, HTN, and thyroid disease. She reports on her blood glucose levels fluctuating but being consistently elevated since last night amidst taking her insulin and diabetic medication as prescribed. She denies any polyuria, polydipsia, polyphagia, vomiting, or further associated symptoms. Chief Complaint: Hyperglycemia Time Seen by MD: 22:40 Primary Care Provider: GAGAN History of present illness: Nurses Notes, Medications, Allergies Allergies: Coded Allergies: Acetaminophen (Verified Allergy, Severe, 01/21/25) Uncoded Allergies: CONTRAST (Allergy, Unknown, 04/04/24) BURNING/ITCHY Home Meds Active Scripts Meloxicam (Meloxicam) 7.5 Mg Tab, 1 TAB PO DAILY for 30 Days, #30 TAB 1 Refill Prov:PRINCESS CHRISTINE GRAIN SACKER 01/30/25 Cyclobenzaprine Hcl (Cyclobenzaprine Hcl) 10 Mg Tab, 10 MG PO Q8HPRN PRN for 3 Days, #9 TAB Prov:ALESSIA LILLY MD 01/21/25 Ibuprofen Micronized (MOTRIN TABLET) 600 Mg Tb, 600 MG PO TID PRN, #40 TAB *Black box warning-NSAIDS can increase risk of SD & hypertension, GI irritation, ulceration, bleed, perferation. Do not use post cardiac surgery. Use short duration/lowest effective dose. Prov:ALESSIA LILLY MD 01/21/25 Amoxicillin & Pot Clavulanate (Augmentin) 500 Mg Tab, 1 TAB PO BID for 5 Days, #10 TAB Prov:MAGDALENO POLANCO GRAIN SACKER 04/05/24 Benzonatate (Benzonatate) 200 Mg Cap, 1 CAP PO TID, #30 CAP As needed for cough Prov:BOSTON PLASENCIA Q GRAIN SACKER 12/28/23 Albuterol Sulfate (Albuterol Sulfate Hfa) 108 Mcg/Act Aer, 1 PUFF IN Q4HPRN PRN, #1 INH As needed for cough nasal congestion shortness of breath or wheeze Prov:BOSTON PLASENCIA Q GRAIN SACKER 12/28/23 Phenazopyridine HCl (Phenazopyridine Hydrochol) 200 Mg Tab, 1 TAB PO TID for 3 Days, #9 TAB Prov:BOSTON PLASENCIA Q GRAIN SACKER 12/28/23 Cephalexin Monohydrate (Cephalexin) 500 Mg Cap, 1 CAP PO QID for 10 Days, #40 CAP Prov:BOSTON PALSENCIA Q GRAIN SACKER 12/28/23 Reported Medications Oxycodone W/ Acetaminophen (Percocet 5/325MG) 1 Tab Tb, 1 TAB PO BID, #60 TAB 04/03/24 Furosemide (Furosemide) 20 Mg Tab, 1 TAB PO DAILY, #90 TAB 1 Refill 04/02/24 Cephalexin Monohydrate (Cephalexin) 500 Mg Tab, 1 TAB PO QID, #40 TAB 04/02/24 Atorvastatin Calcium (ATORVASTATIN CALCIUM) 80 Mg Tab, 80 MG PO DAILY, TAB 04/02/24 Buspirone Hcl (Buspirone Hcl) 5 Mg Tab, 5 MG PO Q12HR for 30 Days, MG 04/02/24 Lisinopril (Lisinopril) 10 Mg Tab, 10 MG PO DAILY for 30 Days, MG 04/02/24 Levothyroxine Sodium (Synthroid) 300 Mcg Tab, 325 MCG PO QAM, TAB 04/01/24 Information Source: Patient Mode of Arrival: Ambulatory Timing: Hours Duration: Since onset Prehospital treatment: Other (see HPI) History of: Diabetes, Insulin use Past Medical History PAST MEDICAL HISTORY: Asthma, DM, Gallstones, HTN, Thyroid Past Medical History (Other): morbid obesity Surgical History: DIRECTOR OF CASEWORK DEPARTMENT History: No Pertinent DIRECTOR OF CASEWORK DEPARTMENT History Family History Family History: Reviewed,noncontributory to illness Social History Smoker: Non-Smoker Alcohol: Denies ETOH Use Drugs: Denies Drug Use Lives In: Home All Other Systems: Reviewed and Negative (as per HPI) Physical Exam General Appearance: Mild Distress, Obese HEENT: Normal ENT Inspection, Pharynx Normal, TMs Normal Neck: Full Range of Motion, Non-Tender, Normal, Normal Inspection Respiratory: Chest Non-Tender, Lungs Clear, No Accessory Muscle Use, No Respiratory Distress, Normal Breath Sounds Cardiovascular: No Edema, No JVD, No Murmur, No Gallop, Normal Peripheral Pulses, Regular Rate/Rhythm Breast Exam: Deferred Gastrointestinal: No Organomegaly, Non Tender, No Pulsatile Mass, Normal Bowel Sounds, Soft Genitalia: Deferred Pelvic: Deferred Rectal: Deferred Extremities: No calf tenderness, Normal capillary refill, Normal inspection, Normal range of motion, Non-tender, No pedal edema Musculoskeletal : Apperance: Normal Neurologic: Alert, customer services manager II-XII nml as Tested, No Motor Deficits, Normal Affect, Normal Mood, No Sensory Deficits Cerebellar Function: Normal Reflexes: Normal Skin: Dry, Normal Color, Warm Lymphatic: No Adenopathy Was a procedure done? Was a procedure done?: No Differential Diagnosis (DM) Differential Diagnosis: Dehydration, DKA, Electrolyte Abnormality, Hyperglycemia, UTI X-Ray, Labs, Meds, VS Vital Signs Date Time Temp Pulse Resp B/P (MAP) Pulse Ox O2 Delivery O2 Flow Rate FiO2 04/08/25 23:19 99 Room Air* 0 21 04/08/25 22:00 98.7 83 17 151/100 (117) 98 98.7 Lab Test 04/08/25 22:48 04/08/25 22:47 Range/Units Urine Opiates Screen Neg NEGATIVE Urine Fentanyl Screen Neg NEGATIVE Urine Barbiturates Screen Neg NEGATIVE Urine Phencyclidine Screen Neg NEGATIVE Urine Amphetamines Screen Neg NEGATIVE Urine Benzodiazepines Screen Neg NEGATIVE Urine Cocaine Screen Neg NEGATIVE Urine Cannabinoids Screen Neg NEGATIVE White Blood Count 12.8 H 4.4-10.8 10^3/uL Red Blood Count 5.12 4.0-5.20 10^6/uL Hemoglobin 14.5 12.2-16.2 g/dL Hematocrit 43.4 36.0-46.0 % Mean Corpuscular Volume 84.8 80.0-100.0 fL Mean Corpuscular Hemoglobin 28.3 28.0-32.0 pg Mean Corpuscular Hemoglobin Concent 33.3 32.0-36.0 g/dL Red Cell Distribution Width 15.6 H 11.8-14.3 % Platelet Count 321 140-450 10^3/uL Mean Platelet Volume 8.7 6.9-10.8 fL Neutrophils (%) (Auto) 54.1 37.0-80.0 % Lymphocytes (%) (Auto) 37.8 10.0-50.0 % Monocytes (%) (Auto) 5.0 0.0-12.0 % Eosinophils (%) (Auto) 2.4 0.0-7.0 % Basophils (%) (Auto) 0.7 0.0-2.0 % Neutrophils # (Auto) 6.9 1.6-8.6 10 ^3/uL Lymphocytes # (Auto) 4.8 0.4-5.4 10 ^3/uL Monocytes # (Auto) 0.6 0-1.3 10 ^3/uL Eosinophils # (Auto) 0.3 0-0.8 10 ^3/uL Basophils # (Auto) 0.1 0-0.2 10 ^3/uL Nucleated Red Blood Cells 0.1 % Urine Color Light-yellow Yellow Urine Clarity Clear Clear Urine pH 5.5 5.0-9.0 Urine Specific [place] 1.028 1.001-1.035 Urine Protein Trace H Negative Urine Ketones 1+ H Negative Urine Blood Negative Negative /uL Urine Nitrite Negative Negative Urine Bilirubin Negative Negative Urine Urobilinogen Normal Negative mg/dL Urine Leukocyte Esterase Trace Negative /uL Urine RBC 8 0 - 4 /hpf Urine Microscopic WBC 13 H 0-5 /HPF Urine Squamous Epithelial Cells Few <5 /hpf Urine Bacteria Few H None Seen /hpf Urine Mucus Few None Seen Urine Yeast (Budding) Occasional None Seen /hpf Urine Glucose 4+ H Normal mg/dL Urine Test Negative Negative Blood Gas Specimen Type Venous Blood Gas Sample Site Vbg - n/a Blood Gas Patient Temperature 37.0 Arterial Blood Date Drawn [id number] Cipriano Test N/a Venous Blood pH 7.416 7.320-7.430 Venous Blood pCO2 at Patient Temp 41.2 38.0-54.0 mmHg Venous Blood pO2 at Patient Temp < 36.5 23.0-48.0 mmHg Venous Blood HCO3 25.9 22.0-29.0 mmol/L Venous Blood Base Excess 1.2 -2.0-3.0 mmol/L Blood Gas Modality Room air FiO2 % 21.0 Sodium Level 137 136-145 mmol/L Potassium Level 4.3 3.5-5.1 mmol/L Chloride Level 100 98-107 mmol/L Carbon Dioxide Level 27 20-31 mmol/L Anion Gap 10 5-15 Blood Urea Nitrogen 9 9-23 mg/dL Creatinine 0.93 0.550-1.02 mg/dL Glomerular Filtration Rate Calc 80 >90 mL/min BUN/Creatinine Ratio 9.7 L 10.0-20.0 Serum Glucose 286 H 74-106 mg/dL Calcium Level 10.6 H 8.7-10.4 mg/dL Magnesium Level 1.8 1.6-2.6 mg/dL Current Medications Medications (Trade) Dose Ordered Sig/Davide Route Start Time Stop Time Status Last Admin Sodium Chloride 1,000 ml @ 1,000 mls/hr Q1H ONCE IV 04/08/25 22:45 04/08/25 23:44 04/08/25 23:18 Time of 1ST Reevaluation: 22:40 Reevaluation 1ST: Unchanged Patient Education/Counseling: Diagnosis, Treatment Family Education/Counseling: Diagnosis, Treatment Departure 1 Departure Time of Disposition: 23:41 Impression: Primary Impression: Uncontrolled diabetes mellitus Additional Impression: Dehydration Disposition: ADMITTED INPATIENT Condition: Guarded Discharged With: Self, Spouse Comments Lightheadedness and Malaise in Type 2 Diabetes Chief Complaint: Lightheadedness and malaise for 2 days History of Present Illness: Patient is a 39-year-old female with a history of type 2 diabetes mellitus on insulin therapy who presents to the ED with complaints of lightheadedness and malaise for the past two days. She reports feeling unsteady when attempting to ambulate at home and has been unable to adequately care for herself. Patient acknowledges poor oral fluid intake during this period. She reports her home blood glucose readings were in the 400s prior to arrival. Patient is currently experiencing significant malaise and persistent lightheadedness with difficulty tolerating oral fluids. Review of Systems: Constitutional: Positive for malaise and lightheadedness. Neurological: Positive for unsteadiness when ambulating. Endocrine: Positive for hyperglycemia. Gastrointestinal: Positive for difficulty tolerating oral fluids. All other systems reviewed and negative. Medications: Insulin (specific regimen not specified) Past Medical History: Type 2 Diabetes Mellitus, insulin-dependent Obesity Physical Exam: General: Patient is very obese and in mild distress. No other physical exam findings documented. Lab Results: Blood Glucose: 286 mg/dL (improved from reported home readings in the 400s) Calcium: 10.6 mg/dL (slightly elevated) WBC: 12.8 K/uL (mildly elevated) Hemoglobin: 14.5 g/dL (normal) Hematocrit: 43% (normal) Platelets: 321 K/uL (normal) Urinalysis: 1+ ketones Anion Gap: 10 (normal) Imaging and Other Relevant Results: No imaging studies documented Medical Decision Making: Summary Statement: 39-year-old female with poorly controlled type 2 diabetes presenting with lightheadedness, malaise, and dehydration with hyperglycemia and mild ketonuria. Problem List: 1. Uncontrolled type 2 diabetes mellitus with hyperglycemia, 2. Dehydration, 3. Lightheadedness and malaise, 4. Obesity Differential Diagnosis: Diabetic ketoacidosis (though anion gap is normal), Hyperglycemic hyperosmolar state, Volume depletion, Medication effect, Electrolyte abnormalities, Infection (mild leukocytosis noted) ED Course: Patient received IV fluid hydration in the ED. Despite interventions, patient continued to experience significant malaise and lightheadedness with difficulty tolerating oral fluids. Decision made to admit for further management of uncontrolled diabetes and dehydration. Assessment and Plan: 1. Uncontrolled Type 2 Diabetes Mellitus with Hyperglycemia - Blood glucose improved from reported 400s at home to 286 mg/dL in ED - Urinalysis positive for ketones (1+) - Continue insulin therapy with appropriate adjustments - Monitor blood glucose levels closely - Endocrinology consultation for diabetes management optimization 2. Dehydration - Continue IV fluid resuscitation - Monitor electrolytes and renal function - Encourage oral intake as tolerated 3. Severe Lightheadedness and Malaise - Likely secondary to hyperglycemia and dehydration - Monitor for improvement with treatment of primary conditions - Assess for orthostatic hypotension 4. Obesity - Nutritional consultation during admission - Discuss weight management strategies Disposition: Admit to medical floor for management of uncontrolled diabetes and dehydration with continued IV fluids and insulin therapy. Additional Notes: Patient admitted for uncontrolled diabetes and dehydration Billing Information: ICD-10: E11.65 - Type 2 diabetes mellitus with hyperglycemia ICD-10: E86.0 - Dehydration ICD-10: R42 - Dizziness and giddiness ICD-10: R53.83 - Other fatigue Critical Care Note Critical Care Time?: No Stability Stability form required: No Heart Score Heart Score: Heart Score Response (Comments) Value History N/A 0 EKG N/A 0 Age N/A 0 Risk Factors N/A 0 Troponin N/A 0 Total 0 I personally scribed for MARINA NYE MD ([email or web address]) on 04/08/25 at 22:53. Electronically submitted by Luther Scott ([email or web address]). MARINA NYE MD Apr 08, 2025 22:53
[2025-04-08 23:05] LABS: Basophils # (auto) 0.1 10 ^3/uL (0-0.2); Basophils % (auto) 0.7 % (0.0-2.0); Eosinophils # (auto) 0.3 10 ^3/uL (0-0.8); Eosinophils % (auto) 2.4 % (0.0-7.0); Hematocrit 43.4 % (36.0-46.0); Hemoglobin 14.5 g/dL (12.2-16.2); Lymphocytes # (auto) 4.8 10 ^3/uL (0.4-5.4); Lymphocytes % (auto) 37.8 % (10.0-50.0); Mean Corpuscular Hemoglobin 28.3 pg (28.0-32.0); Mean Corpuscular Hgb Conc. 33.3 g/dL (32.0-36.0); Mean Corpuscular Volume 84.8 fL (80.0-100.0); Monocytes # (auto) 0.6 10 ^3/uL (0-1.3); Neutrophils # (auto) 6.9 10 ^3/uL (1.6-8.6); Neutrophils % (auto) 54.1 % (37.0-80.0); Nucleated Red Blood Cells % 0.1 %; Platelet Count (auto) 321 10^3/uL (140-450); Red Blood Cells 5.12 10^6/uL (4.0-5.20); Red Cell Distribution Width 15.6 % (11.8-14.3); White Blood Cell 12.8 10^3/uL (4.4-10.8)
[2025-04-08 23:09] LABS: Urine Bacteria FEW /hpf (None Seen); Urine Blood Negative /uL (Negative); Urine Budding Yeast OCCASIONAL /hpf (None Seen); Urine Clarity Clear (Clear); Urine Color Light-Yellow (Yellow); Urine Mucus FEW (None Seen); Urine Protein, UAD TRACE (Negative); Urine Specific Gravity 1.028 (1.001-1.035); Urine Squamous Epithelial Cell FEW /hpf (<5); Urine Urobilinogen Normal (Negative); Urine WBC 13 /HPF (0-5); Urine pH 5.5 (5.0-9.0)
[2025-04-08 23:13] LABS: Anion Gap 10 (5-15); Carbon Dioxide 27 mmol/L (20-31); Chloride 100 mmol/L (98-107); Potassium 4.3 mmol/L (3.5-5.1); Sodium 137 mmol/L (136-145)
[2025-04-08 23:14] LABS: Calcium 10.6 mg/dL (8.7-10.4)
[2025-04-08] MEDS: SODIUM CHLORIDE 0.9% 1,000 ML IV ONE (23:18)
[2025-04-08 23:19] VITALS: O2SAT 99
[2025-04-08 23:19] LABS: BUN/Creatinine Ratio 9.7 (10.0-20.0); Blood Urea Nitrogen 9 mg/dL (9-23); Glucose 286 mg/dL (74-106); Magnesium 1.8 mg/dL (1.6-2.6)
[2025-04-08 23:19] LABS: Amphetamine Screen, Urine Neg (NEGATIVE); Barbiturate Scree,Urine Neg (NEGATIVE); Benzodiazephine Screen, Urine Neg (NEGATIVE); Cannabinoid Screen, Urine Neg (NEGATIVE); Cocaine Screen, Urine Neg (NEGATIVE); Opiate Scree,Urine Neg (NEGATIVE); Phencyclidine Screen, Urine Neg (NEGATIVE)
[2025-04-09] VITALS (11 sets, daily range): BP systolic 102–146; BP diastolic 57–90; PULSE 64–112; RESP 14–22; TEMP 97.3–98.6; O2SAT 93–98
[2025-04-09] MEDS: SODIUM CHLORIDE 0.9% 1,000 ML IV SCH (05:00)
[2025-04-09] MEDS ORDERED: DEXTROSE (50%) 50ML SYRG IV PRN (05:00)
[2025-04-09] MEDS ORDERED: ALBUTEROL SULF 2.5 MG/0.5ML(0.5%) NEB SOLN NEB PRN (05:00)
[2025-04-09] MEDS ORDERED: DOCUSATE SOD 100 MG CAP PO PRN (05:00)
[2025-04-09] MEDS ORDERED: hydrALAZINE HCL 20 MG/ML VL IV PRN (05:00)
[2025-04-09] MEDS ORDERED: ONDANSETRON HCL 4 MG/2 ML VIAL IV PRN (05:00)
[2025-04-09] MEDS ORDERED: MORPHINE SULFATE INJ 2 MG/ml SYRG IV PRN (05:15)
[2025-04-09] MEDS ORDERED: NITROGLYCERIN 0.4 MG SL TAB SL PRN (05:15)
--- NOTE | 2025-04-09 05:27 | DVHHP2 ---
History of Present Illness Reason for Visit: Uncontrolled diabetes mellitus History of Present Illness The patient is a 39-year-old female morbidly obese with past medical history of asthma, DM, gallstones, thyroid disease, and hypertension who presented to [facility] ED for evaluation of hyperglycemia. Patient reports she has been experiencing lightheadedness, dizziness, nausea, and fluctuating blood glucose levels constantly elevated. Patient was seen and evaluated in the ED, laboratory data shows WBC 12.8, platelets 321, sodium 137, potassium 4.3, BUN nine, creatinine 0.93, glucose 286, calcium 10.6, magnesium 1.8, blood pressure 151/89, heart rate 78, temperature 99.0 F, O2 saturation 98% on room air. Patient was started on IV antibiotic regimen Rocephin, please see medication orders section in the computer. On my assessment, patient denied chest pain, no headache, no dizziness, no diaphoresis, no shortness of breaths, no nausea, no vomiting, no chills. Patient was admitted for further evaluation and medical management. Past Medical History Morbid obesity, Asthma, DM, Gallstones, HTN, Thyroid Past Surgical History section Family History Reviewed, noncontributory to the management of this case. Past Social History The patient lives at home, denies smoking, alcohol or illicit drugs abuse. Review of Systems Constitutional: Yes: Fever, Weakness; No: Chills, Sweats, Malaise, Other Eyes: No: Pain, Vision change, Conjunctivae inflammation, Eyelid inflammation, Other, Redness ENT: No: Ear pain, Ear discharge, Nose pain, Nose discharge, Nose congestion, Mouth pain, Mouth swelling, Throat pain, Throat swelling, Other Respiratory: No: Cough, Dry, Shortness of breath, SOB with excertion, Wheezing, Hemoptysis, Pleuritic Pain, Sputum, Wheezing, Other Cardiovascular: No: Chest Pain, Palpitations, Orthopnea, Paroxysmal Noc. Dys pnea, Edema, Lt Headedness, Other Gastrointestinal: No: Nausea, Vomiting, Abdominal Pain, Diarrhea, Constipation, Melena, Hematochezia, Other Genitourinary: No Dysuria, No Frequency, No Incontinence, No Hematuria, No Retention, No Other Musculoskeletal: No: other, neck pain, shoulder pain, arm pain, back pain, hand pain, leg pain, foot pain Skin: No: Rash, Lesions, Jaundice, Bruising, Other Neurological: No: Weakness, Numbness, Incoordination, Change in speech, Confusion, Seizures, Other Allergies: Coded Allergies: Acetaminophen (Verified Allergy, Severe, 01/21/25) Uncoded Allergies: CONTRAST (Allergy, Unknown, 04/04/24) BURNING/ITCHY Medications Current Medications Medications Dose Ordered Sig/Davide Route Start Time Stop Time Status Last Admin Dose Admin Hydralazine HCl 10 mg Q6HP PRN IV 04/09/25 05:00 Albuterol 2.5 mg Q4HPRN PRN NEB 04/09/25 05:00 Lisinopril 10 mg DAILY PO 04/09/25 10:00 Atorvastatin Calcium 20 mg HS PO 04/09/25 22:00 Levothyroxine Sodium 125 mcg QAM@0600 PO 04/09/25 06:00 Diagnostic Test (Pha) 1 strip ACHS 04/09/25 07:00 Insulin Human Regular HS SC 04/09/25 22:00 Insulin Human Regular AC SC 04/09/25 07:00 Dextrose 50 ml UD PRN IV 04/09/25 05:00 Sodium Chloride 1,000 ml @ 60 mls/hr [id number] IV 04/09/25 05:00 Ondansetron HCl 4 mg Q4HP PRN IV 04/09/25 05:00 Docusate Sodium 100 mg BIDPRN PRN PO 04/09/25 05:00 Ibuprofen 600 mg Q6HP PRN PO 04/09/25 05:00 Exam Vital Signs Vital Signs Date Time Temp Pulse Resp B/P (MAP) Pulse Ox O2 Delivery O2 Flow Rate FiO2 04/09/25 00:09 99.0 78 18 151/89 (109) 98 99.0 04/08/25 23:19 Room Air* 0 21 General Appearance: Alert, Oriented X3, Cooperative, No acute distress HEENT: Atraumatic, PERRLA, EOMI, Mucous membr. moist/pink Respiratory: Normal air movement Cardiovascular: Regular rate, Normal S1, Normal S2, No murmurs Abdominal: Normal bowel sounds, Soft, No tenderness, No hepatospenomegaly, No masses Extremities: No clubbing, No cyanosis, No edema, Normal pulses, No tenderness/swelling Skin: No rashes, No breakdown, No significant lesion Neuro: Normal speech, Normal tone, Sensation intact, Cranial nerves 3-12 NL, Reflexes 2+, Other (Generalized weakness) Psych/Mental Status: Mental status NL, Mood NL Labs/Xrays Labs Test 04/09/25 01:00 04/08/25 22:48 04/08/25 22:47 Range/Units POC Glucose 261 H 70-106 mg/dl Urine Opiates Screen Neg NEGATIVE Urine Fentanyl Screen Neg NEGATIVE Urine Barbiturates Screen Neg NEGATIVE Urine Phencyclidine Screen Neg NEGATIVE Urine Amphetamines Screen Neg NEGATIVE Urine Benzodiazepines Screen Neg NEGATIVE Urine Cocaine Screen Neg NEGATIVE Urine Cannabinoids Screen Neg NEGATIVE White Blood Count 12.8 H 4.4-10.8 10^3/uL Red Blood Count 5.12 4.0-5.20 10^6/uL Hemoglobin 14.5 12.2-16.2 g/dL Hematocrit 43.4 36.0-46.0 % Mean Corpuscular Volume 84.8 80.0-100.0 fL Mean Corpuscular Hemoglobin 28.3 28.0-32.0 pg Mean Corpuscular Hemoglobin Concent 33.3 32.0-36.0 g/dL Red Cell Distribution Width 15.6 H 11.8-14.3 % Platelet Count 321 140-450 10^3/uL Mean Platelet Volume 8.7 6.9-10.8 fL Neutrophils (%) (Auto) 54.1 37.0-80.0 % Lymphocytes (%) (Auto) 37.8 10.0-50.0 % Monocytes (%) (Auto) 5.0 0.0-12.0 % Eosinophils (%) (Auto) 2.4 0.0-7.0 % Basophils (%) (Auto) 0.7 0.0-2.0 % Neutrophils # (Auto) 6.9 1.6-8.6 10 ^3/uL Lymphocytes # (Auto) 4.8 0.4-5.4 10 ^3/uL Monocytes # (Auto) 0.6 0-1.3 10 ^3/uL Eosinophils # (Auto) 0.3 0-0.8 10 ^3/uL Basophils # (Auto) 0.1 0-0.2 10 ^3/uL Nucleated Red Blood Cells 0.1 % Urine Color Light-yellow Yellow Urine Clarity Clear Clear Urine pH 5.5 5.0-9.0 Urine Specific [place] 1.028 1.001-1.035 Urine Protein Trace H Negative Urine Ketones 1+ H Negative Urine Blood Negative Negative /uL Urine Nitrite Negative Negative Urine Bilirubin Negative Negative Urine Urobilinogen Normal Negative mg/dL Urine Leukocyte Esterase Trace Negative /uL Urine RBC 8 0 - 4 /hpf Urine Microscopic WBC 13 H 0-5 /HPF Urine Squamous Epithelial Cells Few <5 /hpf Urine Bacteria Few H None Seen /hpf Urine Mucus Few None Seen Urine Yeast (Budding) Occasional None Seen /hpf Urine Glucose 4+ H Normal mg/dL Urine Test Negative Negative Blood Gas Specimen Type Venous Blood Gas Sample Site Vbg - n/a Blood Gas Patient Temperature 37.0 Arterial Blood Date Drawn [id number] Cipriano Test N/a Venous Blood pH 7.416 7.320-7.430 Venous Blood pCO2 at Patient Temp 41.2 38.0-54.0 mmHg Venous Blood pO2 at Patient Temp < 36.5 23.0-48.0 mmHg Venous Blood HCO3 25.9 22.0-29.0 mmol/L Venous Blood Base Excess 1.2 -2.0-3.0 mmol/L Blood Gas Modality Room air FiO2 % 21.0 Sodium Level 137 136-145 mmol/L Potassium Level 4.3 3.5-5.1 mmol/L Chloride Level 100 98-107 mmol/L Carbon Dioxide Level 27 20-31 mmol/L Anion Gap 10 5-15 Blood Urea Nitrogen 9 9-23 mg/dL Creatinine 0.93 0.550-1.02 mg/dL Glomerular Filtration Rate Calc 80 >90 mL/min BUN/Creatinine Ratio 9.7 L 10.0-20.0 Serum Glucose 286 H 74-106 mg/dL Calcium Level 10.6 H 8.7-10.4 mg/dL Magnesium Level 1.8 1.6-2.6 mg/dL Assessment/Plan Assessment/Plan Uncontrolled diabetes mellitus Dehydration Morbid obesity Leukocytosis, unspecified Diabetes mellitus with hyperglycemia Plan 1. Admit to telemetry unit 2. Breathing treatment 3. Pain control management 4. IV antibiotic management 5. Management of fluids and electrolytes 6. Consultation for hospitalist 7. Diagnostic test chest x-ray 8. DVT prophylaxis on SCDs 9. Repeat labs CBC, CMP in a.m. 10. Home medication reviewed and reconciled 11. Continue with current medical management 12. Treatment plan discussed with patient and RN. Patient verbalized understanding. Plan discussed with: Patient, Other (RN) My Orders Orders - SANTOSH KRAFT DNP Procedure Category Date Status Time Complete Blood Count LAB 04/09/25 Logged 04:55 Comprehensive LAB 04/09/25 Logged Metabolic Panel 04:55 Thyroid Stimulating LAB 04/09/25 Logged Hormone 04:55 Hydralazine Injection PHA 04/09/25 In Process (Apresoline Inject 05:00 Albuterol Medneb PHA 04/09/25 In Process (Ventolin Medneb) 05:00 Lisinopril Tablet PHA 04/09/25 In Process (Zestril Tablet) 10:00 Atorvastatin (Lipitor) PHA 04/09/25 In Process 22:00 Levothyroxine Tablet PHA 04/09/25 In Process (Synthroid Tablet) 06:00 Glucose Blood PHA 04/09/25 In Process (Accu-Chek Comfort 07:00 Insulin R (Human) PHA 04/09/25 In Process (Insulin R) 22:00 Insulin R (Human) PHA 04/09/25 In Process (Insulin R) 07:00 Dextrose 50% Syringe PHA 04/09/25 In Process 05:00 Allergies RUSSELL 04/09/25 In Process 04:55 Code Status CODE 04/09/25 Transmitted 04:55 Sodium Chloride 0.9% PHA 04/09/25 In Process 05:00 Oxygen Per Hour RT 04/09/25 Transmitted 04:55 Ondansetron Hcl PHA 04/09/25 In Process (Zofran) 05:00 Docusate Sodium PHA 04/09/25 In Process Capsule (Colace 05:00 Complete Blood Count LAB 04/10/25 Verified 04:00 Comprehensive LAB 04/10/25 Verified Metabolic Panel 04:00 Condition: Serious RUSSELL 04/09/25 In Process 04:55 Bedrest With Bathroom RUSSELL 04/09/25 In Process Privileg 04:55 Sequential RUSSELL 04/09/25 In Process Compression Device Consistent DIET 04/09/25 Transmitted Carb(Ccho)Diabetes Breakfast Ibuprofen Tablet PHA 04/09/25 In Process (Motrin Tablet) 05:00 Problem List: (1) Uncontrolled diabetes mellitus (2) Dehydration (3) Morbid obesity (4) Leukocytosis, unspecified (5) Diabetes mellitus with hyperglycemia Date of Service: Apr 09, 2025 Billing Provider: SANTOSH KRAFT DNP Common Visit Codes: [id number] INP/OBS CARE (HIGH) SANTOSH KRAFT DNP Apr 09, 2025 05:27
[2025-04-09 05:31] LABS: Basophils # (auto) 0.3 10 ^3/uL (0-0.2); Basophils % (auto) 2.1 % (0.0-2.0); Eosinophils # (auto) 0.3 10 ^3/uL (0-0.8); Eosinophils % (auto) 2.1 % (0.0-7.0); Hematocrit 46.9 % (36.0-46.0); Hemoglobin 15.3 g/dL (12.2-16.2); Lymphocytes # (auto) 4.8 10 ^3/uL (0.4-5.4); Lymphocytes % (auto) 37.7 % (10.0-50.0); Mean Corpuscular Hgb Conc. 32.6 g/dL (32.0-36.0); Monocytes # (auto) 0.6 10 ^3/uL (0-1.3); Monocytes % (auto) 4.6 % (0.0-12.0); Neutrophils # (auto) 6.8 10 ^3/uL (1.6-8.6); Neutrophils % (auto) 53.5 % (37.0-80.0); Nucleated Red Blood Cells % 0.3 %; Platelet Count (auto) 319 10^3/uL (140-450); Red Blood Cells 5.46 10^6/uL (4.0-5.20); Red Cell Distribution Width 15.9 % (11.8-14.3); White Blood Cell 12.7 10^3/uL (4.4-10.8)
[2025-04-09 05:47] LABS: Alanine Aminotransferase 16 U/L (7-40); Albumin 4.8 g/dL (3.2-4.8); Anion Gap 14 (5-15); Aspartate Aminotransferase 26 U/L (<34); Bilirubin, Total 0.5 mg/dL (0.2-1.0); Calcium 9.5 mg/dL (8.7-10.4); Carbon Dioxide 24 mmol/L (20-31); Chloride 99 mmol/L (98-107); Potassium 4.1 mmol/L (3.5-5.1); Sodium 137 mmol/L (136-145); Total Protein 8.1 g/dL (5.7-8.2)
[2025-04-09 05:48] LABS: Alkaline Phosphatase 134 U/L (46-116); Blood Urea Nitrogen 9 mg/dL (9-23); Glucose 315 mg/dL (74-106)
[2025-04-09] MEDS ORDERED: LEVOTHYROXINE SODIUM 50 MCG TAB PO SCH (06:00)
[2025-04-09] MEDS: cefTRIAXone 1GM/50ML D5W 50 ML IV ONE (06:09)
[2025-04-09] MEDS: LEVOTHYROXINE SODIUM 100 MCG TAB PO SCH ×2 (06:21→06:22)
[2025-04-09] MEDS: ACCU-CHEK COMFORT CURVE STRIP VI SCH (06:27)
[2025-04-09] MEDS: InsuLIN REG 1unit/0.01ml Soln (100units/ml) SC SCH ×2 (06:33→21:39)
[2025-04-09] MEDS: LISINOPRIL 5 MG TAB PO SCH (09:39)
[2025-04-09] MEDS: cefTRIAXone 1GM/50ML D5W 50 ML IV SCH (09:40)
[2025-04-09] MEDS: IBUPROFEN 600 MG TAB PO PRN (13:02)
--- NOTE | 2025-04-09 13:50 | DVHPN2 ---
Reviewed: Care Plan, H&P, Labs, Medications, Previous Orders, Radiology Changes from previous H/P or p: No Changes Eyes: No Pain, No Vision change, No Conjunctivae inflammation, No Eyelid inflammation, No Other, No Redness ENT: No Ear pain, No Ear discharge, No Nose pain, No Nose discharge, No Nose congestion, No Mouth pain, No Mouth swelling, No Throat pain, No Throat swelling, No Other Cardiovascular: No Chest Pain, No Palpitations, No Orthopnea, No Paroxysmal Noc. Dyspnea, No Edema, No Lt Headedness, No Other Respiratory: No Cough, No Dry, No Shortness of breath, No SOB with excertion, No Wheezing, No Hemoptysis, No Pleuritic Pain, No Sputum, No Other Gastrointestinal: No Nausea, No Vomiting, No Abdominal Pain, No Diarrhea, No Constipation, No Melena, No Hematochezia, No Other Genitourinary: No Dysuria, No Frequency, No Incontinence, No Hematuria, No Retention, No Other Musculoskeletal: No other, No neck pain, No shoulder pain, No arm pain, No back pain, No hand pain, No leg pain, No foot pain Skin: No Rash, No Lesions, No Jaundice, No Bruising, No Other Objective Vitals Vital Signs Date Time Temp Pulse Resp B/P (MAP) Pulse Ox O2 Delivery O2 Flow Rate FiO2 04/09/25 13:00 98.6 80 18 102/57 (72) 98 98.6 04/09/25 09:46 Room Air* 0 21 Intake/Output Intake and Output 04/09/25 07:00 Intake Total 1050 ml Balance 1050 ml Intake IV Total 1050 ml Medications Current Medications Medications Dose Ordered Sig/Davide Route Start Time Stop Time Status Last Admin Dose Admin Hydralazine HCl 10 mg Q6HP PRN IV 04/09/25 05:00 Albuterol 2.5 mg Q4HPRN PRN NEB 04/09/25 05:00 Lisinopril 10 mg DAILY PO 04/09/25 10:00 04/09/25 09:39 10 MG Atorvastatin Calcium 20 mg HS PO 04/09/25 22:00 Diagnostic Test (Pha) 1 strip ACHS 04/09/25 07:00 04/09/25 11:39 1 STRIP Insulin Human Regular HS SC 04/09/25 22:00 Insulin Human Regular AC SC 04/09/25 07:00 04/09/25 11:45 6 UNITS Dextrose 50 ml UD PRN IV 04/09/25 05:00 Sodium Chloride 1,000 ml @ 60 mls/hr [id number] IV 04/09/25 05:00 Ondansetron HCl 4 mg Q4HP PRN IV 04/09/25 05:00 Docusate Sodium 100 mg BIDPRN PRN PO 04/09/25 05:00 Ibuprofen 600 mg Q6HP PRN PO 04/09/25 05:00 04/09/25 13:02 600 MG Nitroglycerin 0.4 mg Q5MINP PRN SL 04/09/25 05:15 Morphine Sulfate 2 mg Q30M PRN IV 04/09/25 05:15 Levothyroxine Sodium 200 mcg QAM@0600 PO 04/09/25 06:00 04/09/25 06:21 200 MCG Levothyroxine Sodium 100 mcg QAM@0600 PO 04/09/25 06:00 04/09/25 06:22 100 MCG Ceftriaxone Sodium 50 ml @ 100 mls/hr DAILY@09 IV 04/09/25 09:00 04/09/25 09:40 100 MLS/HR Laboratory Results Laboratory Tests 04/09/25 05:17 Chemistry Test 04/08/25 22:47 04/09/25 05:17 Calcium Level 10.6 mg/dL (8.7-10.4) H 9.5 mg/dL (8.7-10.4) Magnesium Level 1.8 mg/dL (1.6-2.6) Albumin 4.8 g/dL (3.2-4.8) Total Protein 8.1 g/dL (5.7-8.2) LFT Test 04/09/25 05:17 Alanine Aminotransferase (ALT) 16 U/L (7-40) Alkaline Phosphatase 134 U/L (46-116) H Aspartate Amino Transferase (AST) 26 U/L (<34) Total Bilirubin 0.5 mg/dL (0.2-1.0) HgA1c, TSH Test 04/09/25 05:17 Hemoglobin A1c 11.5 % A1C (<5.7) H Thyroid Stimulating Hormone (TSH) 19.65 uIU/mL (0.55-4.78) H Urinalysis Test 04/08/25 22:47 Urine Color Light-yellow (Yellow) Urine Clarity Clear (Clear) Urine pH 5.5 (5.0-9.0) Urine Specific [place] 1.028 (1.001-1.035) Urine Protein Trace (Negative) H Urine Ketones 1+ (Negative) H Urine Blood Negative /uL (Negative) Urine Nitrite Negative (Negative) Urine Bilirubin Negative (Negative) Urine Urobilinogen Normal mg/dL (Negative) Urine Leukocyte Esterase Trace /uL (Negative) Urine RBC 8 /hpf (0 - 4) Urine Microscopic WBC 13 /HPF (0-5) H Urine Squamous Epithelial Cells Few /hpf (<5) Urine Bacteria Few /hpf (None Seen) H Urine Mucus Few (None Seen) Urine Yeast (Budding) Occasional /hpf (None Urine Glucose 4+ mg/dL (Normal) H Urine Test Negative (Negative) Blood Gas Results Test 04/08/25 22:47 FiO2 % 21.0 Labs and/or images reviewed: Labs reviewed by me, Image(s) reviewed by me Assessment/Plan Assessment/Plan Sepsis secondary to urinary tract infection: Urine cultures, Rocephin Hypertension Uncontrolled diabetes with blood sugars 315 A1c 11.5, aggressive insulin sliding scale diabetic education History of asthma Hypothyroidism History of gallstones Moderate obesity Time spent 55 minutes Plan discussed with: Patient Date of Service: Apr 09, 2025 Billing Provider: SHARON MCCLENDON MD Common Visit Codes: [id number] INP/OBS CARE(HIGH) SHARON MCCLENDON MD Apr 09, 2025 13:50
[2025-04-09] MEDS: ATORVASTATIN 20 MG TAB PO SCH (21:39)
[2025-04-10] VITALS (11 sets, daily range): BP systolic 115–148; BP diastolic 68–92; PULSE 65–84; RESP 16–18; TEMP 97.3–98; O2SAT 93–99
[2025-04-10 08:11] LABS: Hematocrit 45.6 % (36.0-46.0); Hemoglobin 15.2 g/dL (12.2-16.2); Mean Corpuscular Hemoglobin 28.8 pg (28.0-32.0); Mean Corpuscular Hgb Conc. 33.4 g/dL (32.0-36.0); Mean Corpuscular Volume 86.5 fL (80.0-100.0); Platelet Count (auto) 313 10^3/uL (140-450); Red Blood Cells 5.27 10^6/uL (4.0-5.20); Red Cell Distribution Width 16.1 % (11.8-14.3); White Blood Cell 12.1 10^3/uL (4.4-10.8)
[2025-04-10 08:26] LABS: Alanine Aminotransferase 16 U/L (7-40); Anion Gap 12 (5-15); BUN/Creatinine Ratio 9.2 (10.0-20.0); Carbon Dioxide 26 mmol/L (20-31); Chloride 100 mmol/L (98-107); Potassium 4.5 mmol/L (3.5-5.1); Sodium 138 mmol/L (136-145)
[2025-04-10 08:27] LABS: Aspartate Aminotransferase 26 U/L (<34); Bilirubin, Total 0.5 mg/dL (0.2-1.0)
[2025-04-10 08:32] LABS: Albumin 4.9 g/dL (3.2-4.8); Alkaline Phosphatase 132 U/L (46-116); Blood Urea Nitrogen 8 mg/dL (9-23); Calcium 10.8 mg/dL (8.7-10.4); Glucose 171 mg/dL (74-106); Total Protein 8.4 g/dL (5.7-8.2)
[2025-04-10 08:36] LABS: Basophils % (manual) 0 (0.0-2.0); Blast Cells 0; Metamyelocytes % 0; Myelocytes % 0; Promyelocytes % 0; Reactive Lymphocytes 0
[2025-04-10 09:13] LABS: Band Neutrophils % (manual) 1; Eosinophils % (manual) 4 (0-7); Lymphocytes % (manual) 36 (10.0-50.0); Monocytes % (manual) 6 (0-12)
[2025-04-10 09:14] LABS: Platelet Estimate Adequate
--- NOTE | 2025-04-10 14:52 | DVHPN2 ---
Reviewed: Care Plan, H&P, Labs, Medications, Previous Orders, Radiology Changes from previous H/P or p: No Changes Eyes: No Pain, No Vision change, No Conjunctivae inflammation, No Eyelid inflammation, No Other, No Redness ENT: No Ear pain, No Ear discharge, No Nose pain, No Nose discharge, No Nose congestion, No Mouth pain, No Mouth swelling, No Throat pain, No Throat swelling, No Other Cardiovascular: No Chest Pain, No Palpitations, No Orthopnea, No Paroxysmal Noc. Dyspnea, No Edema, No Lt Headedness, No Other Respiratory: No Cough, No Dry, No Shortness of breath, No SOB with excertion, No Wheezing, No Hemoptysis, No Pleuritic Pain, No Sputum, No Other Gastrointestinal: No Nausea, No Vomiting, No Abdominal Pain, No Diarrhea, No Constipation, No Melena, No Hematochezia, No Other Genitourinary: No Dysuria, No Frequency, No Incontinence, No Hematuria, No Retention, No Other Musculoskeletal: No other, No neck pain, No shoulder pain, No arm pain, No back pain, No hand pain, No leg pain, No foot pain Skin: No Rash, No Lesions, No Jaundice, No Bruising, No Other Objective Vitals Vital Signs Date Time Temp Pulse Resp B/P (MAP) Pulse Ox O2 Delivery O2 Flow Rate FiO2 04/10/25 13:03 97.7 74 16 125/83 (97) 97 97.7 04/10/25 10:00 Room Air 0.0 04/10/25 10:00 21 Intake/Output Intake and Output 04/10/25 07:00 Intake Total 290 ml Balance 290 ml Intake Oral 240 ml IV Total 50 ml # Voids 6 Medications Current Medications Medications Dose Ordered Sig/Davide Route Start Time Stop Time Status Last Admin Dose Admin Hydralazine HCl 10 mg Q6HP PRN IV 04/09/25 05:00 Albuterol 2.5 mg Q4HPRN PRN NEB 04/09/25 05:00 Lisinopril 10 mg DAILY PO 04/09/25 10:00 04/10/25 09:30 10 MG Atorvastatin Calcium 20 mg HS PO 04/09/25 22:00 04/09/25 21:39 20 MG Diagnostic Test (Pha) 1 strip ACHS 04/09/25 07:00 04/10/25 11:25 1 STRIP Insulin Human Regular HS SC 04/09/25 22:00 04/09/25 21:39 8 UNITS Insulin Human Regular AC SC 04/09/25 07:00 04/10/25 11:27 9 UNITS Dextrose 50 ml UD PRN IV 04/09/25 05:00 Sodium Chloride 1,000 ml @ 60 mls/hr [id number] IV 04/09/25 05:00 Ondansetron HCl 4 mg Q4HP PRN IV 04/09/25 05:00 Docusate Sodium 100 mg BIDPRN PRN PO 04/09/25 05:00 Ibuprofen 600 mg Q6HP PRN PO 04/09/25 05:00 04/09/25 13:02 600 MG Nitroglycerin 0.4 mg Q5MINP PRN SL 04/09/25 05:15 Morphine Sulfate 2 mg Q30M PRN IV 04/09/25 05:15 Levothyroxine Sodium 200 mcg QAM@0600 PO 04/09/25 06:00 04/10/25 05:44 200 MCG Levothyroxine Sodium 100 mcg QAM@0600 PO 04/09/25 06:00 04/10/25 05:46 100 MCG Ceftriaxone Sodium 50 ml @ 100 mls/hr DAILY@09 IV 04/09/25 09:00 04/10/25 09:29 100 MLS/HR Laboratory Results Laboratory Tests 04/10/25 04:40 Chemistry Test 04/10/25 04:40 Albumin 4.9 g/dL (3.2-4.8) H Calcium Level 10.8 mg/dL (8.7-10.4) H Total Protein 8.4 g/dL (5.7-8.2) H LFT Test 04/10/25 04:40 Alanine Aminotransferase (ALT) 16 U/L (7-40) Alkaline Phosphatase 132 U/L (46-116) H Aspartate Amino Transferase (AST) 26 U/L (<34) Total Bilirubin 0.5 mg/dL (0.2-1.0) Urinalysis Test 04/08/25 22:47 Urine Color Light-yellow (Yellow) Urine Clarity Clear (Clear) Urine pH 5.5 (5.0-9.0) Urine Specific [place] 1.028 (1.001-1.035) Urine Protein Trace (Negative) H Urine Ketones 1+ (Negative) H Urine Blood Negative /uL (Negative) Urine Nitrite Negative (Negative) Urine Bilirubin Negative (Negative) Urine Urobilinogen Normal mg/dL (Negative) Urine Leukocyte Esterase Trace /uL (Negative) Urine RBC 8 /hpf (0 - 4) Urine Microscopic WBC 13 /HPF (0-5) H Urine Squamous Epithelial Cells Few /hpf (<5) Urine Bacteria Few /hpf (None Seen) H Urine Mucus Few (None Seen) Urine Yeast (Budding) Occasional /hpf (None Urine Glucose 4+ mg/dL (Normal) H Urine Test Negative (Negative) Microbiology Microbiology Date/Time Source Procedure Growth Status 04/08/25 22:47 Voided Urine Urine Culture - Preliminary Resulted Labs and/or images reviewed: Labs reviewed by me, Image(s) reviewed by me Assessment/Plan Assessment/Plan Sepsis secondary to urinary tract infection: Urine cultures, Rocephin Hypertension Uncontrolled diabetes with blood sugars 315 A1c 11.5, aggressive insulin sliding scale diabetic education History of asthma Hypothyroidism History of gallstones Moderate obesity Time spent 45 minutes Continue Current management Plan discussed with: Patient Date of Service: Apr 10, 2025 Billing Provider: SHARON MCCLENDON MD Common Visit Codes: [id number] INP/OBS CARE(HIGH) SHARON MCCLENDON MD Apr 10, 2025 14:52
[2025-04-11] VITALS (7 sets, daily range): BP systolic 127–153; BP diastolic 69–82; PULSE 59–76; RESP 17–18; TEMP 97.8–98.4; O2SAT 94–100
--- NOTE | 2025-04-11 12:39 | DVHPN2 ---
Reviewed: Care Plan, H&P, Labs, Medications, Previous Orders, Radiology Changes from previous H/P or p: No Changes Eyes: No Pain, No Vision change, No Conjunctivae inflammation, No Eyelid inflammation, No Other, No Redness ENT: No Ear pain, No Ear discharge, No Nose pain, No Nose discharge, No Nose congestion, No Mouth pain, No Mouth swelling, No Throat pain, No Throat swelling, No Other Cardiovascular: No Chest Pain, No Palpitations, No Orthopnea, No Paroxysmal Noc. Dyspnea, No Edema, No Lt Headedness, No Other Respiratory: No Cough, No Dry, No Shortness of breath, No SOB with excertion, No Wheezing, No Hemoptysis, No Pleuritic Pain, No Sputum, No Other Gastrointestinal: No Nausea, No Vomiting, No Abdominal Pain, No Diarrhea, No Constipation, No Melena, No Hematochezia, No Other Genitourinary: No Dysuria, No Frequency, No Incontinence, No Hematuria, No Retention, No Other Musculoskeletal: No other, No neck pain, No shoulder pain, No arm pain, No back pain, No hand pain, No leg pain, No foot pain Skin: No Rash, No Lesions, No Jaundice, No Bruising, No Other Objective Vitals Vital Signs Date Time Temp Pulse Resp B/P (MAP) Pulse Ox O2 Delivery O2 Flow Rate FiO2 04/11/25 10:00 100 Room Air* 0 21 04/11/25 09:18 153/74 04/11/25 09:00 98.4 67 17 98.4 Intake/Output Intake and Output 04/11/25 07:00 Intake Total 1336 ml Balance 1336 ml Intake Oral 1336 ml # Voids 8 # Bowel Movements 1 Medications Current Medications Medications Dose Ordered Sig/Davide Route Start Time Stop Time Status Last Admin Dose Admin Hydralazine HCl 10 mg Q6HP PRN IV 04/09/25 05:00 Albuterol 2.5 mg Q4HPRN PRN NEB 04/09/25 05:00 Lisinopril 10 mg DAILY PO 04/09/25 10:00 04/11/25 09:18 10 MG Atorvastatin Calcium 20 mg HS PO 04/09/25 22:00 04/10/25 22:09 20 MG Diagnostic Test (Pha) 1 strip ACHS 04/09/25 07:00 04/11/25 11:51 1 STRIP Insulin Human Regular HS SC 04/09/25 22:00 04/10/25 22:07 8 UNITS Insulin Human Regular AC SC 04/09/25 07:00 04/11/25 12:04 6 UNITS Dextrose 50 ml UD PRN IV 04/09/25 05:00 Sodium Chloride 1,000 ml @ 60 mls/hr [id number] IV 04/09/25 05:00 Ondansetron HCl 4 mg Q4HP PRN IV 04/09/25 05:00 Docusate Sodium 100 mg BIDPRN PRN PO 04/09/25 05:00 Ibuprofen 600 mg Q6HP PRN PO 04/09/25 05:00 04/09/25 13:02 600 MG Nitroglycerin 0.4 mg Q5MINP PRN SL 04/09/25 05:15 Morphine Sulfate 2 mg Q30M PRN IV 04/09/25 05:15 Levothyroxine Sodium 200 mcg QAM@0600 PO 04/09/25 06:00 04/11/25 06:33 200 MCG Levothyroxine Sodium 100 mcg QAM@0600 PO 04/09/25 06:00 04/11/25 06:34 100 MCG Ceftriaxone Sodium 50 ml @ 100 mls/hr DAILY@09 IV 04/09/25 09:00 04/11/25 09:13 100 MLS/HR Laboratory Results Laboratory Tests 04/10/25 04:40 Urinalysis Test 04/08/25 22:47 Urine Color Light-yellow (Yellow) Urine Clarity Clear (Clear) Urine pH 5.5 (5.0-9.0) Urine Specific [place] 1.028 (1.001-1.035) Urine Protein Trace (Negative) H Urine Ketones 1+ (Negative) H Urine Blood Negative /uL (Negative) Urine Nitrite Negative (Negative) Urine Bilirubin Negative (Negative) Urine Urobilinogen Normal mg/dL (Negative) Urine Leukocyte Esterase Trace /uL (Negative) Urine RBC 8 /hpf (0 - 4) Urine Microscopic WBC 13 /HPF (0-5) H Urine Squamous Epithelial Cells Few /hpf (<5) Urine Bacteria Few /hpf (None Seen) H Urine Mucus Few (None Seen) Urine Yeast (Budding) Occasional /hpf (None Urine Glucose 4+ mg/dL (Normal) H Urine Test Negative (Negative) Microbiology Microbiology Date/Time Source Procedure Growth Status 04/08/25 22:47 Voided Urine Urine Culture - Final Complete Labs and/or images reviewed: Labs reviewed by me, Image(s) reviewed by me Assessment/Plan Assessment/Plan Sepsis secondary to urinary tract infection: Urine cultures contaminated, treated with Rocephin Hypertension Uncontrolled diabetes with blood sugars 315 A1c 11.5, aggressive insulin sliding scale diabetic education History of asthma Hypothyroidism History of gallstones Moderate obesity Patient feels better and wants to go home Plan discussed with: Patient Date of Service: Apr 11, 2025 Billing Provider: SHARON MCCLENDON MD Common Visit Codes: [id number] INP/OBS CARE(HIGH) SHARON MCCLENDON MD Apr 11, 2025 12:39
[2025-04-11] MEDS ORDERED: CIPR-173 PO (12:41)
--- NOTE | 2025-04-11 12:44 | DVHDS2 ---
Discharge Summary Date of Admission Apr 09, 2025 at 05:13 Date of Discharge: Apr 11, 2025 Admitting Diagnosis Generalized weakness Wounds: None Labs/Diagnostic Data: Laboratory Results Test 04/11/25 11:49 04/10/25 04:40 04/09/25 05:17 04/08/25 22:48 POC Glucose 239 mg/dl (70-106) White Blood Count 12.1 10^3/uL (4.4-10.8) Red Blood Count 5.27 10^6/uL (4.0-5.20) Hemoglobin 15.2 g/dL (12.2-16.2) Hematocrit 45.6 % (36.0-46.0) Mean Corpuscular Volume 86.5 fL (80.0-100.0) Mean Corpuscular Hemoglobin 28.8 pg (28.0-32.0) Mean Corpuscular Hemoglobin Concent 33.4 g/dL (32.0-36.0) Red Cell Distribution Width 16.1 % (11.8-14.3) Platelet Count 313 10^3/uL (140-450) Mean Platelet Volume 9.4 fL (6.9-10.8) Neutrophils (%) (Auto) % (37.0-80.0) Lymphocytes (%) (Auto) % (10.0-50.0) Monocytes (%) (Auto) % (0.0-12.0) Basophils (%) (Auto) % (0.0-2.0) Neutrophils # (Auto) 10 ^3/uL (1.6-8.6) Lymphocytes # (Auto) 10 ^3/uL (0.4-5.4) Monocytes # (Auto) 10 ^3/uL (0-1.3) Differential Total Cells Counted 100.0 (100) Neutrophils % (Manual) 53 (37.0-80.0) Band Neutrophils % (Manual) 1 Lymphocytes % (Manual) 36 (10.0-50.0) Monocytes % (Manual) 6 (0-12) Eosinophils % (Manual) 4 (0-7) Basophils % (Manual) 0 (0.0-2.0) Metamyelocytes % (manual) 0 Myelocytes % (Manual) 0 Promyelocytes % (Manual) 0 Blast Cells % (Manual) 0 Reactive Lymphocytes 0 Platelet Estimate Adequate Sodium Level 138 mmol/L (136-145) Potassium Level 4.5 mmol/L (3.5-5.1) Chloride Level 100 mmol/L (98-107) Carbon Dioxide Level 26 mmol/L (20-31) Anion Gap 12 (5-15) Blood Urea Nitrogen 8 mg/dL (9-23) Creatinine 0.87 mg/dL (0.550-1.02) Glomerular Filtration Rate Calc 87 mL/min (>90) BUN/Creatinine Ratio 9.2 (10.0-20.0) Serum Glucose 171 mg/dL (74-106) Calcium Level 10.8 mg/dL (8.7-10.4) Total Bilirubin 0.5 mg/dL (0.2-1.0) Aspartate Amino Transferase (AST) 26 U/L (<34) Alanine Aminotransferase (ALT) 16 U/L (7-40) Alkaline Phosphatase 132 U/L (46-116) Total Protein 8.4 g/dL (5.7-8.2) Albumin 4.9 g/dL (3.2-4.8) Eosinophils (%) (Auto) 2.1 % (0.0-7.0) Eosinophils # (Auto) 0.3 10 ^3/uL (0-0.8) Basophils # (Auto) 0.3 10 ^3/uL (0-0.2) Nucleated Red Blood Cells 0.3 % Hemoglobin A1c 11.5 % A1C (<5.7) Thyroid Stimulating Hormone (TSH) 19.65 uIU/mL (0.55-4.78) Urine Opiates Screen Neg (NEGATIVE) Urine Fentanyl Screen Neg (NEGATIVE) Urine Barbiturates Screen Neg (NEGATIVE) Urine Phencyclidine Screen Neg (NEGATIVE) Urine Amphetamines Screen Neg (NEGATIVE) Urine Benzodiazepines Screen Neg (NEGATIVE) Urine Cocaine Screen Neg (NEGATIVE) Urine Cannabinoids Screen Neg (NEGATIVE) Test 04/08/25 22:47 Urine Color Light-yellow (Yellow) Urine Clarity Clear (Clear) Urine pH 5.5 (5.0-9.0) Urine Specific [place] 1.028 (1.001-1.035) Urine Protein Trace (Negative) Urine Ketones 1+ (Negative) Urine Blood Negative /uL (Negative) Urine Nitrite Negative (Negative) Urine Bilirubin Negative (Negative) Urine Urobilinogen Normal mg/dL (Negative) Urine Leukocyte Esterase Trace /uL (Negative) Urine RBC 8 /hpf (0 - 4) Urine Microscopic WBC 13 /HPF (0-5) Urine Squamous Epithelial Cells Few /hpf (<5) Urine Bacteria Few /hpf (None Seen) Urine Mucus Few (None Seen) Urine Yeast (Budding) Occasional /hpf (None Urine Glucose 4+ mg/dL (Normal) Urine Test Negative (Negative) Blood Gas Specimen Type Venous Blood Gas Sample Site Vbg - n/a Blood Gas Patient Temperature 37.0 Arterial Blood Date Drawn [id number] Cipriano Test N/a Venous Blood pH 7.416 (7.320-7.430) Venous Blood pCO2 at Patient Temp 41.2 mmHg (38.0-54.0) Venous Blood pO2 at Patient Temp < 36.5 mmHg (23.0-48.0) Venous Blood HCO3 25.9 mmol/L (22.0-29.0) Venous Blood Base Excess 1.2 mmol/L (-2.0-3.0) Blood Gas Modality Room air FiO2 % 21.0 Magnesium Level 1.8 mg/dL (1.6-2.6) Other Laboratory Tests 04/10/25 04:40 Brief Hx & Hospital Course: 39-year-old female with a type 1 diabetes on insulin at home history of asthma hypothyroidism grossly obese with BMI of 58 min complaining of generalized weakness. Found to be in sepsis secondary to urinary tract infection. Treated with Rocephin urine cultures were contaminated blood sugars were high 315 with a A1c 11.5 patient was placed on aggressive sliding scale diabetic education was given . at the time of discharge patient is afebrile feels better and wants to go home cultures came mixed. Sent home on Cipro. Consults/Reason for consult None Operations or Procedures None Condition at Discharge: Fair Final Diagnosis/Problems List Sepsis secondary to urinary tract infection: Urine cultures contaminated, treated with Rocephin Hypertension Uncontrolled diabetes with blood sugars 315 A1c 11.5, aggressive insulin sliding scale diabetic education History of asthma Hypothyroidism History of gallstones Moderate obesity Discharge Disposition: Home Discharge Instruct/Medications Diet: Consistent carbohydrate Activity: Light activity Follow Up/Referral: Continue all home medications including insulin Follow up with the primary Dr in one week Medications: Cipro Transmitted to [facility]'s 39 (Time taken for discharge summary 39 minutes) Discharge Statement: "Patient was advised to return to the ER or call 911 if any headaches, dizziness, shortness of breath, chest pain, abdominal pain, bleeding, fevers, or worsening of medical condition. Patient was counseled about treatment plan, medications, possible side effects, patientverbalized understanding. All questions were answered to the best of my ability. This discharge took greater then 30 minutes in planning, reviewing documentation, counseling the patient, and discussing with other team members." ASSESSMENT ASSESSMENT Hospital Course Improved Assessment Sepsis secondary to urinary tract infection: Urine cultures contaminated, treated with Rocephin Hypertension Uncontrolled diabetes with blood sugars 315 A1c 11.5, aggressive insulin sliding scale diabetic education History of asthma Hypothyroidism History of gallstones Moderate obesity Date of Service: Apr 11, 2025 Billing Provider: SHARON MCCLENDON MD Common Visit Codes: [id number] INP/OBS CARE(HIGH) SHARON MCCLENDON MD Apr 11, 2025 12:44
== END 2025-04-11 15:25 | disposition home or self-care (01) | DRG 720 ==
LOC: ER 21:59 → OVERFLOW 04-09 05:13 → TELE-WESTW 04-09 18:05
PROVIDERS: ADMIT Family Medicine; ATTEND Family Medicine
DX: A41.9 Sepsis, unspecified organism (principal); Z68.43 Body mass index [BMI] 50.0-59.9, adult; E03.9 Hypothyroidism, unspecified; E10.65 Type 1 diabetes mellitus with hyperglycemia; E66.01 Morbid (severe) obesity due to excess calories; I10 Essential (primary) hypertension; J45.909 Unspecified asthma, uncomplicated; E86.0 Dehydration; N39.0 Urinary tract infection, site not specified; K80.20 Calculus of gallbladder without cholecystitis without obstruction; Z79.4 Long term (current) use of insulin; Z91.041 Radiographic dye allergy status; Z88.6 Allergy status to analgesic agent
CPT/HCPCS: 36415; 36600; 80048; 80053; 80307; 81001; 81025; 82805; 82962; 83036; 83735; 84443; 85007; 85025; 85027; 87086; 96361; 96365; G0378; J1815; J2405

== ENCOUNTER 2025-07-13 14:45 | Emergency (ER) | payer MEDICAID ==
[~2025-07-13] VITALS: Ht 165.1 cm; Wt 151.7 kg
[~2025-07-13 14:45] MED LIST changes: +CIPR-173 PO
[2025-07-13 14:47] VITALS: BP 151/100; PULSE 94; RESP 16; TEMP 98; O2SAT 96
== END 2025-07-13 14:53 | disposition left against medical advice (07) ==
LOC: ER 14:47
DX: M54.9 Dorsalgia, unspecified (principal); Z53.21 Procedure and treatment not carried out due to patient leaving prior to being seen by health care provider

== ENCOUNTER 2025-09-19 16:47 | Emergency (ER) | payer MEDICAID ==
[~2025-09-19] VITALS: Ht 165.1 cm; Wt 151.1 kg
[2025-09-19 16:50] VITALS: BP 151/72; PULSE 72; RESP 16; TEMP 97.8; O2SAT 100
--- NOTE | 2025-09-19 18:24 | ED.PDOC ---
General HPI Comments 39-year-old female presents to ER with urinary complaint x4 days. Patient reports that she has been experiencing burning with urination, decrease in urination and lower back pain x4 days. States that she recently was diagnosed and treated for a UTI 10 days ago. She rates her current lower back pain a 10/10 and presents to ER afebrile, in no distress. Denies fever, body aches, chills, n/v, abdominal/pelvic pain, further changes in urination or any further symptoms/complaints Chief Complaint: Urinary Time Seen by MD: 18:09 Primary Care Provider: GAGAN Reviewed notes: Nurses Notes, Medications, Allergies Allergies: Coded Allergies: Acetaminophen (Verified Allergy, Severe, 01/21/25) Uncoded Allergies: CONTRAST (Allergy, Unknown, 04/04/24) BURNING/ITCHY Home Meds Active Scripts Ibuprofen (Ibuprofen) 800 Mg Tab, 1 TAB PO TID PRN, #30 TAB 0 Refills Prov:JACQUELYN FITZGERALD 09/19/25 Sulfamethoxazole W/Trimethopri (Bactrim Ds Tablet) 1 Tab Tb, 1 TAB PO BID for 7 Days, #14 TAB Prov:JACQUELYN FITZGERALD 09/19/25 Ciprofloxacin Hcl (Cipro) 500 Mg Tab, 1 TAB PO BID, #20 TAB Prov:SHARON MCCLENDON MD 04/11/25 Meloxicam (Meloxicam) 7.5 Mg Tab, 1 TAB PO DAILY for 30 Days, #30 TAB 1 Refill Prov:PRINCESS CHRISTINE NP 01/30/25 Cyclobenzaprine Hcl (Cyclobenzaprine Hcl) 10 Mg Tab, 10 MG PO Q8HPRN PRN for 3 Days, #9 TAB Prov:ALESSIA LILLY MD 01/21/25 Ibuprofen Micronized (MOTRIN TABLET) 600 Mg Tb, 600 MG PO TID PRN, #40 TAB *Black box warning-NSAIDS can increase risk of NE & hypertension, GI irritation, ulceration, bleed, perferation. Do not use post cardiac surgery. Use short duration/lowest effective dose. Prov:ALESSIA LILLY MD 01/21/25 Amoxicillin & Pot Clavulanate (Augmentin) 500 Mg Tab, 1 TAB PO BID for 5 Days, #10 TAB Prov:MAGDALENO POLANCO REAMER HAND 04/05/24 Benzonatate (Benzonatate) 200 Mg Cap, 1 CAP PO TID, #30 CAP As needed for cough Prov:DAE PLASENCIAA Q REAMER HAND 12/28/23 Albuterol Sulfate (Albuterol Sulfate Hfa) 108 Mcg/Act Aer, 1 PUFF IN Q4HPRN PRN, #1 INH As needed for cough nasal congestion shortness of breath or wheeze Prov:DAE PLASENCIAA Q REAMER HAND 12/28/23 Phenazopyridine HCl (Phenazopyridine Hydrochol) 200 Mg Tab, 1 TAB PO TID for 3 Days, #9 TAB Prov:DAE PLASENCIAA Q REAMER HAND 12/28/23 Cephalexin Monohydrate (Cephalexin) 500 Mg Cap, 1 CAP PO QID for 10 Days, #40 CAP Prov:BOSTON PLASENCIA Q REAMER HAND 12/28/23 Reported Medications Oxycodone W/ Acetaminophen (Percocet 5/325MG) 1 Tab Tb, 1 TAB PO BID, #60 TAB 04/03/24 Furosemide (Furosemide) 20 Mg Tab, 1 TAB PO DAILY, #90 TAB 1 Refill 04/02/24 Cephalexin Monohydrate (Cephalexin) 500 Mg Tab, 1 TAB PO QID, #40 TAB 04/02/24 Atorvastatin Calcium (ATORVASTATIN CALCIUM) 80 Mg Tab, 80 MG PO DAILY, TAB 04/02/24 Buspirone Hcl (Buspirone Hcl) 5 Mg Tab, 5 MG PO Q12HR for 30 Days, MG 04/02/24 Lisinopril (Lisinopril) 10 Mg Tab, 10 MG PO DAILY for 30 Days, MG 04/02/24 Levothyroxine Sodium (Synthroid) 300 Mcg Tab, 325 MCG PO QAM, TAB 04/01/24 Information Source: Patient Mode of Arrival: Ambulatory Past Medical History PAST MEDICAL HISTORY: Asthma, DM, Gallstones, HTN, Thyroid, UTI'S Surgical History: FLOOR CARE SPECIALIST History: No Pertinent FLOOR CARE SPECIALIST History Family History Family History: Unknown Social History Smoker: Non-Smoker Alcohol: Denies ETOH Use Drugs: Denies Drug Use Lives In: Home Constitutional: denies: chills, diaphoresis, fatigue, fever, malaise, sweats, weakness, others EENTM: denies: blurred vision, double vision, ear bleeding, ear discharge, ear drainage, ear pain, ear ringing, eye pain, eye redness, hearing loss, mouth pain, mouth swelling, nasal discharge, nose bleeding, nose congestion, nose pain, photophobia, tearing, throat pain, throat swelling, voice changes, others Respiratory: denies: cough, hemoptysis, orthopnea, SOB at rest, shortness of breath, SOB with excertion, stridor, wheezing, others Cardiovascular: denies: chest pain, dizzy spells, diaphoresis, Dyspnea on exertion, edema, irregular heart beat, left arm pain, lightheadedness, palpitations, PND, syncope, others Gastrointestinal: denies: abdomen distended, abdominal pain, blood streaked bowels, constipated, diarrhea, dysphagia, difficulty swallowing, hematemesis, melena, nausea, poor appetite, poor fluid intake, rectal bleeding, rectal pain, vomiting, others Genitourinary: reports: others (As stated in HPI) Neurological: denies: dizziness, fainting, headache, left sided numbness, left sided weakness, numbness, paresthesia, pre-existing deficit, right sided numbness, right sided weakness, seizure, speech problems, tingling, tremors, weakness, others Musculoskeletal: denies: back pain, gout, joint pain, joint swelling, muscle pain, muscle stiffness, neck pain, others Integumetry: denies: bruises, change in color, change in hair/nails, dryness, laceration, lesions, lumps, rash, wounds, others Allergic/Immunocompromised: denies: Difficulty Healing, Frequent Infections, Hives, Itching, others Hematologic/Lymphatic: denies: anemia, blood clots, easy bleeding, easy bruisin g, swollen glands, others Endocrine: denies: excessive hunger, excessive sweating, excessive thirst, excessive urination, flushing, intolerance to cold, intolerance to heat, unexplained weight gain, unexplained weight loss, others Psychiatric: denies: anxiety, bipolar disorder, depression, hopeless, panic disorder, schizophrenia, sleepless, suicidal, others Physical Exam General Appearance: No Apparent Distress, Obese HEENT: PERRL/EOMI Neck: Full Range of Motion, Non-Tender, Normal Respiratory: Chest Non-Tender, Lungs Clear, No Accessory Muscle Use, No Respiratory Distress, Normal Breath Sounds Cardiovascular: No Murmur, No Gallop, Regular Rate/Rhythm Breast Exam: Deferred Gastrointestinal: Non Tender, No Pulsatile Mass, Soft Genitalia: Deferred Pelvic: Deferred Rectal: Deferred Extremities: Normal capillary refill, Normal range of motion Musculoskeletal : Extremity Location: Back (No TTP to bilateral flanks or CVA tenderness noted bilaterally. No bony tenderness to spine noted) Neurologic: Alert, doctor of pharmacy II-XII nml as Tested, No Motor Deficits, Normal Affect, Normal Mood, No Sensory Deficits Cerebellar Function: Normal Reflexes: Normal Skin: Dry, Normal Color, Warm Peripheral Pulses: 2+ Radial (R), 2+ Radial (L), 2+ Brachial (R), 2+ Brachial (L) Lymphatic: No Adenopathy Was a procedure done? Was a procedure done?: No Sedation Sedation?: No Differential Diagnosis Kidney stone (Female): N/A Urinary Problem (Female): Intrauterine , Pyelonephritis, Urinary retention, Vaginitis X-Ray, Labs, Meds, VS Vital Signs Date Time Temp Pulse Resp B/P (MAP) Pulse Ox O2 Delivery O2 Flow Rate FiO2 09/19/25 16:50 97.8 72 16 151/72 100 97.8 Lab Test 09/19/25 18:52 09/19/25 17:45 Range/Units White Blood Count 10.1 4.4-10.8 10^3/uL Red Blood Count 4.66 4.0-5.20 10^6/uL Hemoglobin 13.8 12.2-16.2 g/dL Hematocrit 41.4 36.0-46.0 % Mean Corpuscular Volume 88.8 80.0-100.0 fL Mean Corpuscular Hemoglobin 29.7 28.0-32.0 pg Mean Corpuscular Hemoglobin Concent 33.4 32.0-36.0 g/dL Red Cell Distribution Width 16.1 H 11.8-14.3 % Platelet Count 328 140-450 10^3/uL Mean Platelet Volume 8.3 6.9-10.8 fL Neutrophils (%) (Auto) 54.3 37.0-80.0 % Lymphocytes (%) (Auto) 36.9 10.0-50.0 % Monocytes (%) (Auto) 4.3 0.0-12.0 % Eosinophils (%) (Auto) 3.6 0.0-7.0 % Basophils (%) (Auto) 0.9 0.0-2.0 % Neutrophils # (Auto) 5.5 1.6-8.6 10 ^3/uL Lymphocytes # (Auto) 3.7 0.4-5.4 10 ^3/uL Monocytes # (Auto) 0.4 0-1.3 10 ^3/uL Eosinophils # (Auto) 0.4 0-0.8 10 ^3/uL Basophils # (Auto) 0.1 0-0.2 10 ^3/uL Nucleated Red Blood Cells 0.1 % Sodium Level 139 136-145 mmol/L Potassium Level 4.3 3.5-5.1 mmol/L Chloride Level 101 98-107 mmol/L Carbon Dioxide Level 27 20-31 mmol/L Anion Gap 11 5-15 Blood Urea Nitrogen 6 L 9-23 mg/dL Creatinine 1.03 H 0.550-1.02 mg/dL Glomerular Filtration Rate Calc 71 >90 mL/min BUN/Creatinine Ratio 5.8 L 10.0-20.0 Serum Glucose 211 H 74-106 mg/dL Calcium Level 10.1 8.7-10.4 mg/dL Urine Color Light-brown Yellow Urine Clarity Ex.turbid Clear Urine pH 5.5 5.0-9.0 Urine Specific [place] 1.026 1.001-1.035 Urine Protein 1+ H Negative Urine Ketones Negative Negative Urine Blood 2+ H Negative /uL Urine Nitrite Negative Negative Urine Bilirubin Negative Negative Urine Urobilinogen Normal Negative mg/dL Urine Leukocyte Esterase Negative Negative /uL Urine RBC 5 0 - 4 /hpf Urine WBC Clumps Present None Seen /hpf Urine Microscopic WBC 54 H 0-5 /HPF Urine Squamous Epithelial Cells None seen <5 /hpf Urine Amorphous Crystals Mod None Seen /hpf Urine Bacteria None seen None Seen /hpf Urine Mucus Few None Seen Urine Glucose 1+ H Normal mg/dL Urine Test Negative Negative Current Medications Medications (Trade) Dose Ordered Sig/Davide Route Start Time Stop Time Status Last Admin Ceftriaxone Sodium (Rocephin) 1,000 mg ONCE ONCE IM 09/19/25 19:00 09/19/25 19:01 DC 09/19/25 19:11 Ketorolac Tromethamine (Toradol Injection) 60 mg ONCE ONCE IM 09/19/25 19:00 09/19/25 19:01 DC 09/19/25 19:12 CBC reviewed without any significant abnormalities BMP reviewed- Serum glucose 211 Urinalysis reviewed-WBC 54, WBC clumps, + hematuria, leukocyte esterase negative, urine nitrites negative Rocephin 1 g IM ordered Toradol 60 mg IM ordered Advised to drink plenty of fluids Advised to follow up with PCP in 1-2 days Patient verbalized understanding and agreeable with current plan of care Advised to return to ER immediately if symptoms worsen Time of 1ST Reevaluation: 18:24 Reevaluation 1ST: N/A Patient Education/Counseling: Diagnosis, Treatment, Prognosis, Need For Follow Up Family Education/Counseling: No Family Present SEPSIS Sepsis Screen Date sepsis recognized/suspect: Sep 19, 2025 Time Sepsis recognized/suspect: 1652 Recent Procedure: No On Antibiotic Therapy: No Respiratory Rate >20: No Heart Rate >90: No Temp<36 C (96.8 F) or >38.3 C: No SBP <90 or MAP <65 mmHG: No New Acute Mental Status Change: No Is the patient on CPAP, BIPAP,: No Physician Orders Urine Bacterial Culture (09/19/25 18:18) Vital Signs Date Time Temp Pulse Resp B/P (MAP) Pulse Ox O2 Delivery O2 Flow Rate FiO2 09/19/25 16:50 97.8 72 16 151/72 100 97.8 Laboratory Tests Test 09/19/25 18:52 White Blood Count 10.1 10^3/uL (4.4-10.8) Medications Medications Dose Ordered Sig/Davide Route Start Time Stop Time Status Last Admin Dose Admin Ceftriaxone Sodium 1,000 mg ONCE ONCE IM 09/19/25 19:00 09/19/25 19:01 DC 09/19/25 19:11 Ketorolac Tromethamine 60 mg ONCE ONCE IM 09/19/25 19:00 09/19/25 19:01 DC 09/19/25 19:12 Departure 1 Departure Time of Disposition: 19:40 Impression: Primary Impression: Acute cystitis with hematuria Disposition: HOME / SELF CARE / HOMELESS Condition: Stable e-Prescriptions Ibuprofen (Ibuprofen) 800 Mg Tab 1 TAB PO TID PRN, #30 TAB 0 Refills Prov: JACQUELYN FITZGERALD 09/19/25 Sulfamethoxazole W/Trimethopri (Bactrim Ds Tablet) 1 Tab Tb 1 TAB PO BID for 7 Days, #14 TAB Prov: JACQUELYN FITZGERALD 09/19/25 Discharged With: Self Critical Care Note Critical Care Time?: No Stability Stability form required: No Heart Score Heart Score: Heart Score Response (Comments) Value History N/A 0 EKG N/A 0 Age N/A 0 Risk Factors N/A 0 Troponin N/A 0 Total 0 JACQUELYN FITZGERALD Sep 19, 2025 18:24
[2025-09-19 18:47] LABS: Urine Amorphous Crystal MOD /hpf (None Seen); Urine Protein, UAD 1+ (Negative); Urine WBC Clumps PRESENT /hpf (None Seen)
[2025-09-19] MEDS ORDERED: BACDST PO (18:56)
[2025-09-19] MEDS ORDERED: IBUP-1456 PO (18:56)
[2025-09-19] MEDS: cefTRIAXone SOD 1,000 MG VL IM ONE (19:11)
[2025-09-19] MEDS: KETOROLAC TROMETH 60MG/2ML VIAL IM ONE (19:12)
[2025-09-19 19:19] LABS: Hematocrit 41.4 % (36.0-46.0); Hemoglobin 13.8 g/dL (12.2-16.2); Mean Corpuscular Hemoglobin 29.7 pg (28.0-32.0); Mean Corpuscular Volume 88.8 fL (80.0-100.0); Nucleated Red Blood Cells % 0.1 %
[2025-09-19 19:26] LABS: Chloride 101 mmol/L (98-107); Potassium 4.3 mmol/L (3.5-5.1); Sodium 139 mmol/L (136-145)
[2025-09-19 19:27] LABS: Anion Gap 11 (5-15); Carbon Dioxide 27 mmol/L (20-31)
[2025-09-19 19:28] LABS: Calcium 10.1 mg/dL (8.7-10.4)
[2025-09-19 19:32] LABS: BUN/Creatinine Ratio 5.8 (10.0-20.0)
[2025-09-19 19:33] LABS: Blood Urea Nitrogen 6 mg/dL (9-23); Glucose 211 mg/dL (74-106)
== END 2025-09-19 19:51 | disposition home or self-care (01) ==
LOC: ER 16:47
DX: N30.01 Acute cystitis with hematuria (principal); E11.9 Type 2 diabetes mellitus without complications; I10 Essential (primary) hypertension; J45.909 Unspecified asthma, uncomplicated; Z79.891 Long term (current) use of opiate analgesic
CPT/HCPCS: 36415; 80048; 81001; 81025; 85025; 87086; 96372; 99284; J0696; J1885